=== PATIENT | female | born 1945 | race Caucasian/White ===

== ENCOUNTER 2017-05-22 20:18 | Inpatient (IN) ==
--- NOTE | 2017-05-22 20:54 | Emergency Department Report ---
Psych HPI - General Chief Complaint: Psychiatric Symptoms <Demetris Villeda C - 05/23/17 02:36> Stated Complaint: Clearance for generations <Demetris Villeda Suzanne 05/23/17 02:36> Time Seen by Provider: 05/22/17 20:23 <Demetris Villeda C - 05/23/17 02:36> Source: patient <Esperanza Shea - 05/22/17 20:54> Mode of arrival: ambulatory <Esperanza Shea 05/22/17 20:54> Limitations: no limitations <Esperanza Shea N - 05/22/17 20:54> - History of Present Illness HPI Narrative: She is brought in today by her and daughter in law. She has a history of dementia and she lives at home with her . He has noticed over the last week the she has had some increasing behaviors. Increased confusion and aggression at home. She puts on her sunglasses and gets her purse and wants to leave every 5 minutes. She is sleeping at night but he is not sleeping since he has to watch her. She has not had any other c/o. Is eating well. Has had some increased trouble with incontinence over the last week. They did go to [facility] today and were there for screening but were waiting a long time. They decided to come to [facility] for evaluation. Have not had an official acceptance to [facility]. <Esperanza Shea N 05/22/17 20:54> MD complaint: other (dementia with behaviors) <Esperanza Shae N 05/22/17 20:54> Onset (ago): week(s) (1) <Graciela Sheaa N 05/22/17 20:54> Duration: changing over time <NoGraciela camejoa N 05/22/17 20:54> Relieving factors: none <NoGraciela camejoa N 05/22/17 20:54> Exacerbating factors: none <NoGraciela camejoa N 05/22/17 20:54> Context: other (dementia) <NoGraciela camejoa N 05/22/17 20:54> Associated psychiatric symptoms: none <NoGraciela camejoa N 05/22/17 20:54> Associated symptoms: denies other symptoms <NoEsperanza 05/22/17 20:54> Treatments prior to arrival: none <No,Esperanza 05/22/17 20:54> - Related Data Home Medications Medication Instructions Recorded Confirmed Amlodipine [Norvasc] 5 mg PO DAILY 05/22/17 05/22/17 Benazepril [Lotensin] 20 mg PO DAILY 05/22/17 05/22/17 Metformin [Glucophage] 500 mg PO BID 05/22/17 05/22/17 Tennille-3/Dha/Epa/Fish Oil [Fish Oil 1,000 mg PO DAILY 05/22/17 05/22/17 1,000 mg Softgel] Simvastatin [Simvastatin] 20 mg PO HS 05/22/17 05/22/17 Vitamin D 1 tab PO DAILY 05/22/17 05/22/17 <Demetris Villeda - 05/23/17 02:36> Allergies Allergy/AdvReac Type Severity Reaction Status Date / Time erythromycin base AdvReac Intermediate Verified 05/22/17 20:39 tetracycline AdvReac Intermediate Verified 05/22/17 20:39 Unclassified Drug AdvReac Severe RASH DUE Uncoded 01/11/11 07:54 TO PLASTICS <Demetris Villeda - 05/23/17 02:36> Review of Systems Constitutional: Denies: fever, chills, weakness <Nold,Esperanza 05/22/17 20: 54> Eyes: Denies: eye pain <ld,Esperanza 05/22/17 20:54> ENT: Denies: ear pain, throat pain, congestion <No,Esperanza 05/22/17 20:54 > Cardiovascular: Denies: chest pain, palpitations, dyspnea on exertion, edema < Nold,Esperanza N 05/22/17 20:54> Respiratory: Denies: cough, dyspnea, wheezes <Nold,Esperanza 05/22/17 20:54> Gastrointestinal: Denies: abdominal pain, nausea, vomiting, diarrhea <Nold, Esperanza N 05/22/17 20:54> Integumentary: Denies: rash <Nold,Esperanza 05/22/17 20:54> Neurological: Denies: headache, weakness, numbness, paresthesias <Nold,Esperanza N 05/22/17 20:54> [facility] Patient Stated Medical History Dementia Yes Hypertension Yes Diabetes Mellitus Type 2 Yes Hx Incontinence Yes Other Hematologic Yes: ASPIRIN <Demetris Villeda Suzanne - 05/23/17 02:36> - Social History Smoking status: Never smoker <Esperanza Shea 05/22/17 20:54> Substance use type: does not use <Esperanza Shea 05/22/17 20:54> Alcohol intake frequency: does not drink <Esperanza Shea 05/22/17 20:54> Physical Exam - Limitations Limitations: no limitations <Esperanza Shea 05/22/17 20:54> - General General appearance: alert, in no apparent distress <ShabbirEsperanza Palomares 05/22/17 20:54> - Normal Exams: ENMT:: No facial trauma, nasal exudates, pharyngeal erythema, or exudates are noted <StellabashirEsperanza Palomares 05/22/17 20:54> Neck:: Full range of motion, without adenopathy, JVD, bruits or thyromegaly < Esperanza Shea 05/22/17 20:54> Chest/Respirations:: Clear all qureshi, with good airflow, and symmetry bilaterally <Esperanza Shea 05/22/17 20:54> Cardiovascular:: Regular rate and rhythm, without murmur or gallop, Pulses 2+ all extremities, capillary refill, <2 seconds all extremities <StellabashirEsperanza 05/22/17 20:54> Abdomen:: Bowel sounds positive, soft, non-tender, non-distended, no hepatosplenomegaly, masses or bruits noted <ShabbirEsperanza Palomares 05/22/17 20:54> Lymphatic:: No lymphadenopathy, or lymphedema noted <StellaEsperanza Palomares 05/22/17 20:54> Integumentary:: No rashes, hives, or bruising noted <StellaEsperanza Palomares 05/22/17 20:54> Neurological:: Patient is alert, cranial nerves, motor/sensory/cerebellar, exams w/o gross deficits, to observation <Esperanza Shea - 05/22/17 20:54> Psychiatric:: Patient exhibits, appropriate attention, emotion and affect < Esperanza Shea - 05/22/17 20:54> Course Vital Signs Pulse Rate 58 L 05/22/17 20:24 Respiratory Rate 18 05/22/17 20:24 Blood Pressure 177/81 H 05/22/17 20:24 Pulse Oximetry 98 05/22/17 20:24 Temperature 97.8 F 05/22/17 23:42 Pulse Rate 59 L 05/22/17 23:42 Respiratory Rate 18 05/22/17 23:42 Blood Pressure 158/79 H 05/22/17 23:42 Pulse Oximetry 99 05/22/17 23:42 <Demetris Villeda - 05/23/17 02:36> Psych - MDM Narrative Medical decision making narrative: 2130- Did speak with the [employer] and she will come and screen patient at this time. Noted Nitrite positive UA and bacteria in urine. Will go ahead and give her a Keflex here. 2321-Patient was accepted for admission to [facility] unit at this time. <Esperanza Shea - 05/22/17 23:23> - Differential Diagnosis Likely: depression, acute anxiety <Espearnza Shea - 05/22/17 20:54> - Lab Data Attestation: I reviewed the patient's lab results. <Esperanza Shea - 05/22/17 23:23> Result diagrams: 05/22/17 20:46 05/22/17 20:46 <Demetris Villeda - 05/23/17 02:36> Lab Results 05/22/17 05/22/17 05/22/17 Range/Units 20:46 20:46 20:46 WBC 7.1 (4.5-11.0) T/MM3 RBC 4.39 (4.00-5.20) M/MM3 Hgb 12.5 (12-16) GM/DL Hct 39.1 (36-46) % MCV 89.1 (80-100) UM3 MCH 28.5 (26-34) UUG MCHC 32.0 (31-37) GM/DL RDW Std Deviation 45.9 (36.9-50.2) FL Plt Count 241 (130-400) T/MM3 MPV 9.6 (9.4-12.4) UM3 Immature Gran % (Auto) 0.1 (0.0-0.5) % Neut % (Auto) 67.1 H (33-66) % Lymph % (Auto) 24.3 (23-45) % [place] % (Auto) 6.8 (0-9.0) % Eos % (Auto) 1.3 (0-4) % Baso % (Auto) 0.4 (0-2) % Neut # 4.8 (1.8-7.7) T/MM3 Lymph # 1.7 (1-4.8) T/MM3 [place] # 0.5 (0-0.8) T/MM3 Eos # 0.1 (0-0.5) T/MM3 Baso # 0.0 (0-0.2) T/MM3 Abs Immat Gran (auto) 0.01 (0.00-0.03) T/MM3 Turbidity < 20 (0-20) Sodium 148 H (134-144) MEQ/L Potassium 3.8 (3.6-5) MEQ/L Chloride 105 (98-107) MEQ/L Carbon Dioxide 29 (22-30) MEQ/L Anion Gap 14 (5-15) MEQ/L BUN 15.0 (7-17) MG/DL Creatinine 0.8 (0.7-1.2) MG/DL GFR Calculation 71 BUN/Creatinine Ratio 19 (6-26) RATIO Glucose 87 (65-110) MG/DL Calculated Osmolality 284 H (261-280) MOSM/KG Calcium 10.5 H (8.4-10.2) MG/DL Icterus Index < 2 (0-7) Prealbumin (17.6-36.0) MG/DL TSH 1.26 (0.47-4.68) MIU/L Specimen Hemolysis < 15 (0-25) Ur Collection Type Urine, clean catch Urine Color Yellow (YELLOW) Urine Clarity Clear Urine pH 5.5 (5.0-8.0) Ur Specific [place] <=1.005 L (1.015-1.025) Urine Protein Negative (NEGATIVE) Urine Glucose (UA) Negative (NEGATIVE) Urine Ketones Negative (NEGATIVE) Urine Occult Blood Negative (NEGATIVE) Urine Nitrate Positive A (NEGATIVE) Urine Bilirubin Negative (NEGATIVE) Urine Urobilinogen 0.2 (NORMAL) EU/DL Ur Leukocyte Esterase Negative (NEGATIVE) Urine RBC None seen (0-3) /HPF Urine WBC 0-1 (0-5) /HPF Ur Squamous Epith Cells 0-5 Urine Bacteria 3+ H (NEGATIVE) Ur Culture Indicated? Cult reflexed &setup 05/22/17 Range/Units 20:46 WBC (4.5-11.0) T/MM3 RBC (4.00-5.20) M/MM3 Hgb (12-16) GM/DL Hct (36-46) % MCV (80-100) UM3 MCH (26-34) UUG MCHC (31-37) GM/DL RDW Std Deviation (36.9-50.2) FL Plt Count (130-400) T/MM3 MPV (9.4-12.4) UM3 Immature Gran % (Auto) (0.0-0.5) % Neut % (Auto) (33-66) % Lymph % (Auto) (23-45) % [place] % (Auto) (0-9.0) % Eos % (Auto) (0-4) % Baso % (Auto) (0-2) % Neut # (1.8-7.7) T/MM3 Lymph # (1-4.8) T/MM3 [place] # (0-0.8) T/MM3 Eos # (0-0.5) T/MM3 Baso # (0-0.2) T/MM3 Abs Immat Gran (auto) (0.00-0.03) T/MM3 Turbidity (0-20) Sodium (134-144) MEQ/L Potassium (3.6-5) MEQ/L Chloride (98-107) MEQ/L Carbon Dioxide (22-30) MEQ/L Anion Gap (5-15) MEQ/L BUN (7-17) MG/DL Creatinine (0.7-1.2) MG/DL GFR Calculation BUN/Creatinine Ratio (6-26) RATIO Glucose (65-110) MG/DL Calculated Osmolality (261-280) MOSM/KG Calcium (8.4-10.2) MG/DL Icterus Index (0-7) Prealbumin 24.9 (17.6-36.0) MG/DL TSH (0.47-4.68) MIU/L Specimen Hemolysis (0-25) Ur Collection Type Urine Color (YELLOW) Urine Clarity Urine pH (5.0-8.0) Ur Specific Delmar (1.015-1.025) Urine Protein (NEGATIVE) Urine Glucose (UA) (NEGATIVE) Urine Ketones (NEGATIVE) Urine Occult Blood (NEGATIVE) Urine Nitrate (NEGATIVE) Urine Bilirubin (NEGATIVE) Urine Urobilinogen (NORMAL) EU/DL Ur Leukocyte Esterase (NEGATIVE) Urine RBC (0-3) /HPF Urine WBC (0-5) /HPF Ur Squamous Epith Cells Urine Bacteria (NEGATIVE) Ur Culture Indicated? <Demetris Villeda - 05/23/17 02:36> Lab Results 05/22/17 05/22/17 05/22/17 Range/Units 20:46 20:46 20:46 WBC 7.1 (4.5-11.0) T/MM3 RBC 4.39 (4.00-5.20) M/MM3 Hgb 12.5 (12-16) GM/DL Hct 39.1 (36-46) % MCV 89.1 (80-100) UM3 MCH 28.5 (26-34) UUG MCHC 32.0 (31-37) GM/DL RDW Std Deviation 45.9 (36.9-50.2) FL Plt Count 241 (130-400) T/MM3 MPV 9.6 (9.4-12.4) UM3 Immature Gran % (Auto) 0.1 (0.0-0.5) % Neut % (Auto) 67.1 H (33-66) % Lymph % (Auto) 24.3 (23-45) % [place] % (Auto) 6.8 (0-9.0) % Eos % (Auto) 1.3 (0-4) % Baso % (Auto) 0.4 (0-2) % Neut # 4.8 (1.8-7.7) T/MM3 Lymph # 1.7 (1-4.8) T/MM3 [place] # 0.5 (0-0.8) T/MM3 Eos # 0.1 (0-0.5) T/MM3 Baso # 0.0 (0-0.2) T/MM3 Abs Immat Gran (auto) 0.01 (0.00-0.03) T/MM3 Turbidity < 20 (0-20) Sodium 148 H (134-144) MEQ/L Potassium 3.8 (3.6-5) MEQ/L Chloride 105 (98-107) MEQ/L Carbon Dioxide 29 (22-30) MEQ/L Anion Gap 14 (5-15) MEQ/L BUN 15.0 (7-17) MG/DL Creatinine 0.8 (0.7-1.2) MG/DL GFR Calculation 71 BUN/Creatinine Ratio 19 (6-26) RATIO Glucose 87 (65-110) MG/DL Calculated Osmolality 284 H (261-280) MOSM/KG Calcium 10.5 H (8.4-10.2) MG/DL Icterus Index < 2 (0-7) Prealbumin (17.6-36.0) MG/DL TSH 1.26 (0.47-4.68) MIU/L Specimen Hemolysis < 15 (0-25) Ur Collection Type Urine, clean catch Urine Color Yellow (YELLOW) Urine Clarity Clear Urine pH 5.5 (5.0-8.0) Ur Specific [place] <=1.005 L (1.015-1.025) Urine Protein Negative (NEGATIVE) Urine Glucose (UA) Negative (NEGATIVE) Urine Ketones Negative (NEGATIVE) Urine Occult Blood Negative (NEGATIVE) Urine Nitrate Positive A (NEGATIVE) Urine Bilirubin Negative (NEGATIVE) Urine Urobilinogen 0.2 (NORMAL) EU/DL Ur Leukocyte Esterase Negative (NEGATIVE) Urine RBC None seen (0-3) /HPF Urine WBC 0-1 (0-5) /HPF Ur Squamous Epith Cells 0-5 Urine Bacteria 3+ H (NEGATIVE) Ur Culture Indicated? Cult reflexed &setup 05/22/17 Range/Units 20:46 WBC (4.5-11.0) T/MM3 RBC (4.00-5.20) M/MM3 Hgb (12-16) GM/DL Hct (36-46) % MCV (80-100) UM3 MCH (26-34) UUG MCHC (31-37) GM/DL RDW Std Deviation (36.9-50.2) FL Plt Count (130-400) T/MM3 MPV (9.4-12.4) UM3 Immature Gran % (Auto) (0.0-0.5) % Neut % (Auto) (33-66) % Lymph % (Auto) (23-45) % [place] % (Auto) (0-9.0) % Eos % (Auto) (0-4) % Baso % (Auto) (0-2) % Neut # (1.8-7.7) T/MM3 Lymph # (1-4.8) T/MM3 [place] # (0-0.8) T/MM3 Eos # (0-0.5) T/MM3 Baso # (0-0.2) T/MM3 Abs Immat Gran (auto) (0.00-0.03) T/MM3 Turbidity (0-20) Sodium (134-144) MEQ/L Potassium (3.6-5) MEQ/L Chloride (98-107) MEQ/L Carbon Dioxide (22-30) MEQ/L Anion Gap (5-15) MEQ/L BUN (7-17) MG/DL Creatinine (0.7-1.2) MG/DL GFR Calculation BUN/Creatinine Ratio (6-26) RATIO Glucose (65-110) MG/DL Calculated Osmolality (261-280) MOSM/KG Calcium (8.4-10.2) MG/DL Icterus Index (0-7) Prealbumin 24.9 (17.6-36.0) MG/DL TSH (0.47-4.68) MIU/L Specimen Hemolysis (0-25) Ur Collection Type Urine Color (YELLOW) Urine Clarity Urine pH (5.0-8.0) Ur Specific [place] (1.015-1.025) Urine Protein (NEGATIVE) Urine Glucose (UA) (NEGATIVE) Urine Ketones (NEGATIVE) Urine Occult Blood (NEGATIVE) Urine Nitrate (NEGATIVE) Urine Bilirubin (NEGATIVE) Urine Urobilinogen (NORMAL) EU/DL Ur Leukocyte Esterase (NEGATIVE) Urine RBC (0-3) /HPF Urine WBC (0-5) /HPF Ur Squamous Epith Cells Urine Bacteria (NEGATIVE) Ur Culture Indicated? <StellabashirEsperanza N - 05/22/17 21:24> Disposition Clinical Impression: Dementia Qualifiers: Dementia type: associated with other underlying disease Dementia behavioral disturbance: with behavioral disturbance Qualified Code(s): F02.81 - Dementia in other diseases classified elsewhere with behavioral disturbance <Demetris Villeda - 05/23/17 02:36> Disposition: 65 To [facility] <Demetris Villeda C 05/23/17 02:36> Condition: Stable <Demetris Villeda 05/23/17 02:36> Instructions: <Demetris Villeda 05/23/17 02:36> Prescriptions: No Action Metformin [Glucophage] 500 mg PO BID Simvastatin [Simvastatin] 20 mg PO HS Amlodipine [Norvasc] 5 mg PO DAILY Vitamin D 1 tab PO DAILY Tennille-3/Dha/Epa/Fish Oil [Fish Oil 1,000 mg Softgel] 1,000 mg PO DAILY Benazepril [Lotensin] 20 mg PO DAILY <Demetris Villeda - 05/23/17 02:36> Referrals: Josué Thakur MD [Family Provider] - <Demetris Villeda 05/23 02:36> Forms: <Demetris Villeda 05/23/17 02:36> Time of Disposition: 23:21 <Esperanza Shea - 05/22/17 23:23> - Seen By: midlevel <Esperanza Shea N 05/22/17 23:23>
[2017-05-23] MEDS ORDERED: HALOPERIDOL 0.5 MG TABLET PO PRN (00:10)
[2017-05-23] MEDS ORDERED: HALOPERIDOL 5 MG/ML INJECTION IM PRN (00:10)
[2017-05-23 00:43] VITALS: BMI 22.3
[2017-05-23] MEDS: BENAZEPRIL 20 MG TABLET PO SCH ×2 (07:32→08:12)
[2017-05-23] MEDS: LORazepam 0.5 MG TABLET PO PRN (07:32)
[2017-05-23] MEDS: OMEGA-3 ACID ESTERS 1 GM CAPSULE PO SCH ×2 (07:32→08:12)
[2017-05-23] MEDS: METFORMIN 500 MG TABLET PO SCH ×2 (07:32→17:17)
[2017-05-23] MEDS: AMLODIPINE 5 MG TABLET PO SCH ×2 (07:33→08:12)
--- NOTE | 2017-05-23 10:43 | History & Physical Report ---
<Brenda Prince - Last Filed: 05/23/17 13:25> History of Present Illness Date: 05/23/17 Chief complaint: behaviors "out of control" HPI: aNhomi Mehta is a 71-year-old woman who was admitted to [facility] on 05/22/17 for increasing behaviors such as refusing to change her clothes or take her medication, and becoming more aggressive and angry. Her symptoms have been progressing over the last week. She has been more confused, and does carry a diagnosis of dementia. She has been living at home with her . She was cleared in the emergency department and was admitted to [facility]. Initial lab work showed hypernatremia, hypercalcemia, and bacteruria. EKG showed possible junctional rhythm. The patient was seen in her room in the morning of 05/23/17. She was alert and oriented to self and place. She thought she was admitted for treatment of a UTI. She was correct on the month and day, however, she thought that the year was 1916. She states that she has been in relatively good health. She denies any recent illnesses or concerns. Her only positive finding was a cold sore on her left lower lip. Typically, she states she treats these with "Clorox" at home. She denies any recent stress. Specifically, she denies any burning on urination, urinary frequency or urgency, abdominal pain or pressure, nausea or vomiting, back pain/flank pain. Furthermore, she denies any fevers or chills or sweats, constipation or diarrhea. She denies any chest pain or shortness of breath, visual changes, weakness or dizziness, or recent injuries. Review of Systems Comprehensive ROS: completed and no additional positive findings except those as stated - EENMT Mouth/Throat: Present: as per HPI [facility] Vascular dementia Hypertension Hyperlipidemia Gilbert's disease. Type 2 diabetes mellitus. Allergic rhinitis Surgical History: Negative screening colonoscopy in 2012. Left hip replacement at 65 years old. Complete hysterectomy at 49 years old. Tonsillectomy as a child. Family History: Patient reports that both parents in their 80s. Per Dr. Thakur' office notes, family history is negative for breast cancer. - Social History Smoking status: Never smoker Substance use type: does not use Alcohol intake frequency: holidays/special occasions only Household members: spouse Current occupational status: retired Previous occupational history: car driver Medications Home Medications Medication Instructions Recorded Confirmed Type Amlodipine [Norvasc] 5 mg PO DAILY 05/22/17 05/22/17 History Benazepril [Lotensin] 20 mg PO DAILY 05/22/17 05/22/17 History Metformin [Glucophage] 500 mg PO BID 05/22/17 05/22/17 History Alger-3/Dha/Epa/Fish Oil [Fish Oil 1,000 mg PO DAILY 05/22/17 05/22/17 History 1,000 mg Softgel] Simvastatin [Simvastatin] 20 mg PO HS 05/22/17 05/22/17 History Vitamin D 1 tab PO DAILY 05/22/17 05/22/17 History Allergies Allergy/AdvReac Type Severity Reaction Status Date / Time erythromycin base AdvReac Intermediate Verified 05/22/17 20:39 tetracycline AdvReac Intermediate Verified 05/22/17 20:39 Unclassified Drug AdvReac Severe RASH DUE Uncoded 01/11/11 07:54 TO PLASTICS Exam Vital Signs: Temperature 98.0 F 05/23/17 07:22 Pulse Rate 60 05/23/17 09:24 Respiratory Rate 18 05/23/17 09:24 Blood Pressure 154/77 H 05/23/17 07:22 Pulse Oximetry 98 05/23/17 09:24 Oxygen Delivery Method Room Air Height: 1.55 m Weight: 53.6 kg Body Mass Index: 22.3 - Constitutional Present: no acute distress, well nourished, well developed, thin - Routine HEENT Exam Head: Present: normocephalic Eye: Present: PERRL. Absent: conjunctival icterus, scleral injection ENT: Present: mucous membranes moist, oropharynx clear. Absent: dentition normal (decay - mild) Comments: Small herpes lesion to left lower lip - Routine Neck Exam Present: supple. Absent: lymphadenopathy - Routine Respiratory Exam Present: CTA bilaterally - Routine Cardiovascular Exam Present: RRR, S1, S2 - Routine Abdominal Exam Present: soft, normoactive bowel sounds, non distended, non tender - Routine Extremities Exam Present: no edema, pulses intact, normal capillary refill - Routine Skin Exam Present: intact, dry, warm - Routine Neurological Exam Present: alert, CN II-XII intact. Absent: oriented X3 - Routine Psychiatric Exam Present: normal affect, cooperative Results - Labs CBC & Chem 7: 05/22/17 20:46 05/23/17 11:29 Assessment and Plan (1) Hypernatremia Current visit: Yes Status: Acute (2) Bacteria in urine Current visit: Yes Status: Acute Resuscitation Status: Full Code Assessment and Plan: Assessment Vascular dementia with behavioral disturbance. Hyperosmotic hypernatremia, present on admission. Hypercalcemia, present on admission. Asymptomatic UTI. Abnormal EKG. 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 Type 2 diabetes mellitus. Last hemoglobin A1c was 6.1% in April 2016 Hypertension. Hyperlipidemia. Gilbert's disease. Allergic rhinitis. Plan Dementia with behavioral changes -Per attending -Agree with obtaining dementia workup -TSH normal. Vitamin B12, folate, RPR pending. -check LFTs Hypernatremia -Encourage oral intake -On repeat today, sodium returned to normal level at 144 -Reassess BMP tomorrow morning to follow-up on hypernatremia and hypercalcemia. Hypercalcemia [mild]. -Improved on repeat lab work, but remains elevated. -She is not on calcium supplementation but does take cholecalciferol. -Hold vitamin D and check phosphorus level since cholecalciferol promotes secretion of calcium from bone to blood and promotes renal tubule phosphate resorption -Per up-to-date, symptoms of vitamin D toxicity include nausea, vomiting, loss of appetite, constipation, dehydration, fatigue, irritability, confusion, weakness and/or weight loss -check PTH, albumin, and ionized Ca Asymptomatic UTI/bacteria in urine -Normal white count, afebrile, patient also denies any urinary symptoms (though suspect she is not the best historian) -She was given 1 dose of Keflex in the emergency department. -We'll await to see what culture grows out before resuming antibiotic therapy. -If she starts to develop urinary symptoms, may restart antibiotics. -Repeat CBC tomorrow morning to monitor for leukocytosis. Abnormal EKG -Admission EKG showed possible junctional bradycardic rhythm -EKG repeated today revealed sinus bradycardia without acute ST segment elevation or depression. 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 -No other lesions noted in/around mouth -monitor, consider starting acyclovir if worsens. Type 2 diabetes -Continue metformin, carbohydrate controlled diet. -Recheck hemoglobin A1c. -Monitor blood sugars. Sepsis Assessment - Evaluation Sepsis screening result: No Definite Risk Hospital Course Summary Disclaimer: The visit summary below is not to be considered part of the above Progress Note. Hospital Course: 05/23/17 Assessment Vascular dementia with behavioral disturbance. Hyperosmotic hypernatremia, present on admission. Hypercalcemia, present on admission. Asymptomatic UTI. Type 2 diabetes mellitus. Last hemoglobin A1c was 6.1% in April 2016 Hypertension. Hyperlipidemia. Gilbert's disease. Allergic rhinitis. Plan Dementia with behavioral changes -Per attending -Agree with obtaining dementia workup -TSH normal. Vitamin B12, folate, RPR pending. -check LFTs Hypernatremia -Encourage oral intake -On repeat today, sodium returned to normal level at 144 -Reassess BMP tomorrow morning to follow-up on hypernatremia and hypercalcemia. Hypercalcemia [mild]. -Improved on repeat lab work, but remains elevated. -She is not on calcium supplementation but does take cholecalciferol. -Hold vitamin D and check phosphorus level since cholecalciferol promotes secretion of calcium from bone to blood and promotes renal tubule phosphate resorption -Per up-to-date, symptoms of vitamin D toxicity include nausea, vomiting, loss of appetite, constipation, dehydration, fatigue, irritability, confusion, weakness and/or weight loss -check PTH, albumin, and ionized Ca Asymptomatic UTI/bacteria in urine -Normal white count, afebrile, patient also denies any urinary symptoms (though suspect she is not the best historian) -She was given 1 dose of Keflex in the emergency department. -We'll await to see what culture grows out before resuming antibiotic therapy. -If she starts to develop urinary symptoms, may restart antibiotics. -Repeat CBC tomorrow morning to monitor for leukocytosis. Abnormal EKG -Admission EKG showed possible junctional bradycardic rhythm -EKG repeated today revealed sinus bradycardia without acute ST segment elevation or depression. 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 -No other lesions noted in/around mouth -monitor, consider starting acyclovir if worsens. Type 2 diabetes -Continue metformin, carbohydrate controlled diet. -Recheck hemoglobin A1c. -Monitor blood sugars. <Aaron Ricci - Last Filed: 05/23/17 17:06> History of Present Illness Date: 05/23/17 [facility] Patient Stated Medical History Dementia Yes Hypertension Yes Diabetes Mellitus Type 2 Yes Hx Incontinence Yes Other Hematologic Yes: ASPIRIN Exam Vital Signs: Temperature 98.2 F 05/23/17 16:00 Pulse Rate 87 05/23/17 16:00 Respiratory Rate 16 05/23/17 16:00 Blood Pressure 127/71 05/23/17 16:00 Pulse Oximetry 99 05/23/17 16:00 Oxygen Delivery Method Room Air Height: 5 ft 1 in Weight: 53.6 kg Results - Labs CBC & Chem 7: 05/22/17 20:46 05/23/17 11:29 Assessment and Plan (1) Hypernatremia Current visit: Yes Status: Acute (2) Bacteria in urine Current visit: Yes Status: Acute Assessment and Plan: above pt seen and examined by me; agree with above plan of care. Urine culture is growing E Coli, this could still be asymptomatic bacteriuria, will treat to see if this is causing worsening of her mentation. Pt has mild hypercalcemia, agree with PTH level and holding vitamin D. Plan 1) Recheck CBC, BMP and Calcium in the AM. 2) Augmentin will be started. Hospital Course Summary Disclaimer: The visit summary below is not to be considered part of the above Progress Note.
[2017-05-23] MEDS ORDERED: AMOX/CLAV 500 MG/125 MG TABLET PO SCH (17:00)
--- NOTE | 2017-05-23 17:33 | 24 Hour Neuropsychiatic Eval ---
Date of Admission: 05/22/17 23:29 Chief complaint: "I got a UTI" History of Present Illness: HPI: 71 Y/O CF with a hx of dementia BB for increasing aggression and wandering behavior. Per pt has had increasing memory impairment and aggression with wandering behavior. reports pt has been irritable, throwing objects, and has had increased wandering behaviors. This has been going on for about 6 months but it has been worse over the last 2 weeks. On face to face the pt is pleasant. Nursing reports pt was irritable and anxious this morning but is doing well today. She is alert and oriented x 2. Not sure of the month. She states she is here due to a UTI. She voices no concerns at this time. STRESSORS: Denies any current stressors. PSYCH ROS: PT denies feeling depressed. reports pt has been more irritable and angry at times with a labile mood. She has had significant weight loss recently. She can be anxious at times. She denies adal or psychosis. PAST PSYCH: Denies PFSH Patient Stated Medical History Dementia Yes Hypertension Yes Diabetes Mellitus Type 2 Yes Hx Incontinence Yes Other Hematologic Yes: ASPIRIN Surgical History: Negative screening colonoscopy in 2012. Left hip replacement at 65 years old. Complete hysterectomy at 49 years old. Tonsillectomy as a child. - Social History Smoking status: Never smoker Review of Systems - Constitutional Constitutional: Present: anorexia - EENMT Mouth/Throat: Present: as per HPI - Psychiatric Psychiatric: Present: anxiety, difficulty concentrating, mood swings Mental Status Exam Vitals: Last Vital Signs Temp 98.2 F 05/23/17 16:00 Pulse 87 05/23/17 16:00 Resp 16 05/23/17 16:00 BP 127/71 05/23/17 16:00 Pulse Ox 99 05/23/17 16:00 Height: 1.55 m Weight: 53.6 kg - Mental Status Exam Muscle Strength/Tone: Normal Dressing: Casual Grooming: Good Attitude: Guarded Motor Activity: Retardation Eye Contact: Fair Speech: Slowed Volume: Soft Rhythm: Appropriate Rhythm Orientation: Oriented to person, Oriented to place Mood: Neutral Affect: Blunted Rate of Thoughts: Delayed Thought Organization: Confused Associations: Flight of Ideas Abstract Reasoning: Poor abstract reasoning Thought Content: Normal Perception/Psychotic: Perception Normal Fund of Knowledge: Poor fund of knowledge Memory: Poor-immediate, Poor-recent Insight: Poor Judgement: Poor Impulse Control: Poor - Laboratory Result Diagrams: 05/22/17 20:46 05/23/17 11:29 Laboratory Results - last 24 hr 05/23/17 05/23/17 05/23/17 11:27 11:29 14:15 Turbidity < 20 Sodium 144 Potassium 4.3 Chloride 106 Carbon Dioxide 29 Anion Gap 9 BUN 15.0 Creatinine 0.7 GFR Calculation 82 BUN/Creatinine Ratio 21 Glucose 85 Glucometer 171 Hemoglobin A1c 5.3 L Calculated Osmolality 277 Calcium 10.3 H Ionized Calcium Grant Phosphorus 3.5 Total Bilirubin Conjugated Bilirubin Unconjugated Bilirubin Icterus Index < 2 AST ALT Alkaline Phosphatase Total Protein Albumin Globulin Albumin/Globulin Ratio PTH Intact Specimen Hemolysis < 15 05/23/17 05/23/17 14:58 14:58 Turbidity < 20 Sodium Potassium Chloride Carbon Dioxide Anion Gap BUN Creatinine GFR Calculation BUN/Creatinine Ratio Glucose Glucometer Hemoglobin A1c Calculated Osmolality Calcium Ionized Calcium Grant 1.30 Phosphorus Total Bilirubin 1.00 Conjugated Bilirubin 0.00 Unconjugated Bilirubin 0.60 Icterus Index < 2 AST 19 ALT 28 Alkaline Phosphatase 62 Total Protein 7.2 Albumin 4.6 4.5 Globulin 2.6 Albumin/Globulin Ratio 1.8 PTH Intact 30.9 Specimen Hemolysis < 15 Assessment and Plan (1) Major neurocognitive disorder due to Alzheimer's disease, possible Problem details: with behavioral disturbance Current visit: Yes Status: Acute (2) Delirium due to another medical condition Problem details: Suspect due to UTI Current visit: Yes Status: Acute Admit to [facility]. Will consult medical team and treat UTI. Will monitor and obtain collateral from
[2017-05-23] MEDS: SIMVASTATIN 20 MG TABLET PO SCH (21:00)
[2017-05-24] MEDS: AMOX/CLAV 500 MG/125 MG TABLET PO SCH ×3 (08:52→17:26)
[2017-05-24] MEDS: OMEGA-3 ACID ESTERS 1 GM CAPSULE PO SCH (08:52)
[2017-05-24] MEDS: BENAZEPRIL 20 MG TABLET PO SCH (08:52)
[2017-05-24] MEDS: METFORMIN 500 MG TABLET PO SCH ×2 (08:52→17:26)
[2017-05-24] MEDS: AMLODIPINE 5 MG TABLET PO SCH (08:53)
[2017-05-24] MEDS: LORazepam 0.5 MG TABLET PO PRN (10:29)
--- NOTE | 2017-05-24 18:18 | Neuropsych Progress Note ---
Alex Subjective Date: 05/24/17 - Sujective/Severity of Illness Medications: Amlodipine Besylate (Norvasc) 5 mg PO DAILY [facility] Last Admin: 05/24/17 08:53 Dose: 5 mg Amoxicillin/Clavulanate Potassium (Augmentin) 500 mg PO TIDWM [facility] Last Admin: 05/24/17 17:26 Dose: 500 mg Benazepril HCl (Lotensin) 20 mg PO DAILY [facility] Last Admin: 05/24/17 08:52 Dose: 20 mg Cholecalciferol (Vit. D-3) 1,000 unit PO DAILY [facility] Last Admin: 05/23/17 08:12 Dose: Not Given Haloperidol (Haldol) 0.5 mg PO Q6H PRN PRN Reason: Anxiety/Agitation Haloperidol Lactate (Haldol) 0.5 mg IM Q6H PRN PRN Reason: Extreme agitation Lorazepam (Ativan Inj) 0.5 mg IM Q6H PRN PRN Reason: Anxiety/Agitation Lorazepam (Ativan) 0.5 mg PO Q6H PRN PRN Reason: Anxiety/Agitation Last Admin: 05/24/17 10:29 Dose: 0.5 mg Metformin HCl (Glucophage) 500 mg PO BIDWM [facility] Last Admin: 05/24/17 17:26 Dose: 500 mg Kedam-3-Vehl Ethyl Esters (Lovaza) 1 gm PO DAILY [facility] Last Admin: 05/24/17 08:52 Dose: 1 gm Simvastatin (Zocor) 20 mg PO HS [facility] Last Admin: 05/23/17 21:00 Dose: 20 mg Subjective: Pt seen and chart examined. Nursing reports pt does a little worse in the mornings and then gets better as the day goes on. PT is obsessive in the mornings and somewhat anxious but her cognition and anxiety seem to improve as the day goes on. On face to face the pt states she is doing well. She is only oriented x 1. She denies any pain. Tolerating meds Start Time: 17:00 Stop Time: 17:15 Mental Status Exam Vitals: Last Vital Signs Temp 97.8 F 05/24/17 16:00 Pulse 61 05/24/17 16:00 Resp 18 05/24/17 16:00 BP 167/79 H 05/24/17 16:00 Pulse Ox 99 05/24/17 16:00 Height: 1.55 m Weight: 53.6 kg - Mental Status Exam Muscle Strength/Tone: Normal Dressing: Casual Grooming: Good Attitude: Guarded Motor Activity: Retardation Eye Contact: Fair Speech: Slowed Volume: Soft Rhythm: Appropriate Rhythm Orientation: Oriented to person, Oriented to place Mood: Neutral Rate of Thoughts: Delayed Thought Organization: Confused Associations: Flight of Ideas Abstract Reasoning: Poor abstract reasoning Thought Content: Normal Perception/Psychotic: Perception Normal Fund of Knowledge: Poor fund of knowledge Memory: Poor-immediate, Poor-recent Insight: Poor Judgement: Poor Impulse Control: Poor - Laboratory Result Diagrams: 05/24/17 07:42 05/24/17 07:42 Laboratory Results - last 24 hr 05/23/17 05/24/17 05/24/17 20:02 05:43 07:42 WBC RBC Hgb Hct MCV MCH MCHC RDW Std Deviation Plt Count MPV Immature Gran % (Auto) Neut % (Auto) Lymph % (Auto) [place] % (Auto) Eos % (Auto) Baso % (Auto) Neut # Lymph # [place] # Eos # Baso # Abs Immat Gran (auto) Turbidity < 20 Sodium 146 H Potassium 3.7 Chloride 103 Carbon Dioxide 31 H Anion Gap 12 BUN 13.0 Creatinine 0.7 GFR Calculation 82 BUN/Creatinine Ratio 19 Glucose 97 Glucometer 105 90 Calculated Osmolality 281 H Calcium 10.1 Icterus Index < 2 Specimen Hemolysis < 15 05/24/17 05/24/17 05/24/17 07:42 10:23 14:33 WBC 6.6 RBC 4.57 Hgb 12.9 Hct 40.7 MCV 89.1 MCH 28.2 MCHC 31.7 RDW Std Deviation 45.3 Plt Count 247 MPV 9.4 Immature Gran % (Auto) 0.2 Neut % (Auto) 65.6 Lymph % (Auto) 27.0 [place] % (Auto) 5.2 Eos % (Auto) 1.7 Baso % (Auto) 0.3 Neut # 4.3 Lymph # 1.8 [place] # 0.3 Eos # 0.1 Baso # 0.0 Abs Immat Gran (auto) 0.01 Turbidity Sodium Potassium Chloride Carbon Dioxide Anion Gap BUN Creatinine GFR Calculation BUN/Creatinine Ratio Glucose Glucometer 97 84 Calculated Osmolality Calcium Icterus Index Specimen Hemolysis Assessment and Plan (1) Major neurocognitive disorder due to Alzheimer's disease, possible Problem details: with behavioral disturbance Current visit: Yes Status: Acute (2) Delirium due to another medical condition Problem details: Suspect due to UTI Current visit: Yes Status: Acute Hospital Course Summary Disclaimer: The visit summary below is not to be considered part of the above Progress Note. Hospital Course: 05/23/17 Assessment Vascular dementia with behavioral disturbance. Hyperosmotic hypernatremia, present on admission. Hypercalcemia, present on admission. Asymptomatic UTI. Type 2 diabetes mellitus. Last hemoglobin A1c was 6.1% in April 2016 Hypertension. Hyperlipidemia. Gilbert's disease. Allergic rhinitis. Plan Dementia with behavioral changes -Per attending -Agree with obtaining dementia workup -TSH normal. Vitamin B12, folate, RPR pending. -check LFTs Hypernatremia -Encourage oral intake -On repeat today, sodium returned to normal level at 144 -Reassess BMP tomorrow morning to follow-up on hypernatremia and hypercalcemia. Hypercalcemia [mild]. -Improved on repeat lab work, but remains elevated. -She is not on calcium supplementation but does take cholecalciferol. -Hold vitamin D and check phosphorus level since cholecalciferol promotes secretion of calcium from bone to blood and promotes renal tubule phosphate resorption -Per up-to-date, symptoms of vitamin D toxicity include nausea, vomiting, loss of appetite, constipation, dehydration, fatigue, irritability, confusion, weakness and/or weight loss -check PTH, albumin, and ionized Ca Asymptomatic UTI/bacteria in urine -Normal white count, afebrile, patient also denies any urinary symptoms (though suspect she is not the best historian) -She was given 1 dose of Keflex in the emergency department. -We'll await to see what culture grows out before resuming antibiotic therapy. -If she starts to develop urinary symptoms, may restart antibiotics. -Repeat CBC tomorrow morning to monitor for leukocytosis. Abnormal EKG -Admission EKG showed possible junctional bradycardic rhythm -EKG repeated today revealed sinus bradycardia without acute ST segment elevation or depression. 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 -No other lesions noted in/around mouth -monitor, consider starting acyclovir if worsens. Type 2 diabetes -Continue metformin, carbohydrate controlled diet. -Recheck hemoglobin A1c. -Monitor blood sugars. 05/24/17 18:18 Remeron 15mg PO QHS
[2017-05-24] MEDS ORDERED: MIRTAZAPINE 15 MG TABLET PO PRN (18:19)
[2017-05-24] MEDS: SIMVASTATIN 20 MG TABLET PO SCH (20:23)
[2017-05-25] MEDS: BENAZEPRIL 20 MG TABLET PO SCH (08:42)
[2017-05-25] MEDS: OMEGA-3 ACID ESTERS 1 GM CAPSULE PO SCH (08:42)
[2017-05-25] MEDS: AMLODIPINE 5 MG TABLET PO SCH (08:42)
[2017-05-25] MEDS: METFORMIN 500 MG TABLET PO SCH ×2 (08:42→17:03)
[2017-05-25] MEDS: AMOX/CLAV 500 MG/125 MG TABLET PO SCH ×3 (08:42→17:03)
--- NOTE | 2017-05-25 09:52 | Progress Note ---
Subjective: Nahomi is seen today in follow up while eating breakfast. She is alert, oriented and pleasant. She denies having any concerns or complaints. Denies pain or shortness of breath. Blood sugars have been well controlled. Fasting sugar this morning 85. Appetite is good. She is voiding without difficulty and denies dysuria. No reported bowel movement. Objective Vital signs: Temperature 98.2 F 05/25/17 08:00 Pulse Rate 97 05/25/17 08:00 Respiratory Rate 16 05/25/17 08:00 Blood Pressure 149/99 H 05/25/17 08:00 Pulse Oximetry 100 05/25/17 08:00 Oxygen Delivery Method Room Air Height: 1.55 m Weight: 53.6 kg Body Mass Index: 22.3 - Constitutional Present: no acute distress, well nourished, well developed - Routine HEENT Exam Head: Present: normocephalic Eye: Present: EOMI, PERRL ENT: Present: mucous membranes moist, dentition normal - Routine Respiratory Exam Present: CTA bilaterally. Absent: wheezes - Routine Cardiovascular Exam Present: RRR, S1, S2. Absent: murmur - Routine Abdominal Exam Present: soft, normoactive bowel sounds, non distended. Absent: tenderness - Routine Extremities Exam Present: normal capillary refill - Routine Back/Spine/Pelvis Exam Back/Spine: Present: full ROM - Routine Skin Exam Present: intact, dry, warm - Routine Neurological Exam Present: alert, oriented X3, CN II-XII intact - Routine Lymphatic Exam Lymphatic: Absent: adenopathy - Routine Psychiatric Exam Present: normal affect Results - Labs CBC & Chem 7: 05/24/17 07:42 05/24/17 07:42 Assessment and Plan (1) Hypernatremia Current visit: Yes Status: Acute (2) Bacteria in urine Current visit: Yes Status: Acute Assessment and Plan: 05/25/17 UTI- Continue on Augmentin for treatment of Escherichia coli urinary tract infection. Culture and sensitivity reviewed. HTN- noted. Blood pressure is slightly elevated today. We'll continue to monitor. Currently on Norvasc 5 milligrams daily. Could consider increasing to 10mg. Constipation-have asked nursing staff to increase their aggressiveness regarding bowel motivation. Started MiraLAX and milk of magnesia Diabetes-will continue to monitor blood sugars. Overall appear to be well controlled on metformin 500 twice a day. Continue to encourage purchase patient unit activities and provide a safe environment under the care of Dr. Cha Sepsis Assessment - Evaluation Sepsis screening result: No Definite Risk Hospital Course Summary Disclaimer: The visit summary below is not to be considered part of the above Progress Note. Hospital Course: 05/23/17 Assessment Vascular dementia with behavioral disturbance. Hyperosmotic hypernatremia, present on admission. Hypercalcemia, present on admission. Asymptomatic UTI. Type 2 diabetes mellitus. Last hemoglobin A1c was 6.1% in April 2016 Hypertension. Hyperlipidemia. Gilbert's disease. Allergic rhinitis. Plan Dementia with behavioral changes -Per attending -Agree with obtaining dementia workup -TSH normal. Vitamin B12, folate, RPR pending. -check LFTs Hypernatremia -Encourage oral intake -On repeat today, sodium returned to normal level at 144 -Reassess BMP tomorrow morning to follow-up on hypernatremia and hypercalcemia. Hypercalcemia [mild]. -Improved on repeat lab work, but remains elevated. -She is not on calcium supplementation but does take cholecalciferol. -Hold vitamin D and check phosphorus level since cholecalciferol promotes secretion of calcium from bone to blood and promotes renal tubule phosphate resorption -Per up-to-date, symptoms of vitamin D toxicity include nausea, vomiting, loss of appetite, constipation, dehydration, fatigue, irritability, confusion, weakness and/or weight loss -check PTH, albumin, and ionized Ca Asymptomatic UTI/bacteria in urine -Normal white count, afebrile, patient also denies any urinary symptoms (though suspect she is not the best historian) -She was given 1 dose of Keflex in the emergency department. -We'll await to see what culture grows out before resuming antibiotic therapy. -If she starts to develop urinary symptoms, may restart antibiotics. -Repeat CBC tomorrow morning to monitor for leukocytosis. Abnormal EKG -Admission EKG showed possible junctional bradycardic rhythm -EKG repeated today revealed sinus bradycardia without acute ST segment elevation or depression. 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 -No other lesions noted in/around mouth -monitor, consider starting acyclovir if worsens. Type 2 diabetes -Continue metformin, carbohydrate controlled diet. -Recheck hemoglobin A1c. -Monitor blood sugars. 05/24/17 18:18 Remeron 15mg PO QHS 05/25/17 UTI- Continue on Augmentin for treatment of Escherichia coli urinary tract infection. Culture and sensitivity reviewed. HTN- noted. Blood pressure is slightly elevated today. We'll continue to monitor. Currently on Norvasc 5 milligrams daily. Could consider increasing to 10mg. Constipation-have asked nursing staff to increase their aggressiveness regarding bowel motivation. Started MiraLAX and milk of magnesia Diabetes-will continue to monitor blood sugars. Overall appear to be well controlled on metformin 500 twice a day. Continue to encourage purchase patient unit activities and provide a safe environment under the care of Dr. Cha
[2017-05-25] MEDS: POLYETHYL GLYCOL 3350 17gm PACKET PO SCH (10:10)
--- NOTE | 2017-05-25 14:48 | Neuropsych Progress Note ---
[facility] Subjective Date: 05/25/17 - Sujective/Severity of Illness Medications: Amlodipine Besylate (Norvasc) 5 mg PO DAILY [facility] Last Admin: 05/25/17 08:42 Dose: 5 mg Amoxicillin/Clavulanate Potassium (Augmentin) 500 mg PO TIDWM [facility] Last Admin: 05/25/17 12:01 Dose: 500 mg Benazepril HCl (Lotensin) 20 mg PO DAILY [facility] Last Admin: 05/25/17 08:42 Dose: 20 mg Cholecalciferol (Vit. D-3) 1,000 unit PO DAILY [facility] Last Admin: 05/23/17 08:12 Dose: Not Given Haloperidol (Haldol) 0.5 mg PO Q6H PRN PRN Reason: Anxiety/Agitation Haloperidol Lactate (Haldol) 0.5 mg IM Q6H PRN PRN Reason: Extreme agitation Lorazepam (Ativan Inj) 0.5 mg IM Q6H PRN PRN Reason: Anxiety/Agitation Lorazepam (Ativan) 0.5 mg PO Q6H PRN PRN Reason: Anxiety/Agitation Last Admin: 05/24/17 10:29 Dose: 0.5 mg Magnesium Hydroxide (Mom) 30 ml PO DAILY [facility] Last Admin: 05/25/17 10:10 Dose: 30 ml Metformin HCl (Glucophage) 500 mg PO BIDWM [facility] Last Admin: 05/25/17 08:42 Dose: 500 mg Mirtazapine (Remeron) 15 mg PO 2100 PRN Last Admin: 05/24/17 20:24 Dose: 15 mg [id number] Ethyl Esters (Lovaza) 1 gm PO DAILY [facility] Last Admin: 05/25/17 08:42 Dose: 1 gm Polyethylene Glycol (Miralax) 17 gm PO DAILY [facility] Last Admin: 05/25/17 10:10 Dose: 17 gm Simvastatin (Zocor) 20 mg PO HS [facility] Last Admin: 05/24/17 20:23 Dose: 20 mg Subjective: Pt seen and chart examined. Nursing reports pt doing a little better today. Less anxious. Does wander and exit seek at times but improved. On face to face the pt is pleasant but confused. She is only oriented to self. Denies pain. Tolerating meds Start Time: 14:00 Stop Time: 14:15 Mental Status Exam Vitals: Last Vital Signs Temp 98.2 F 05/25/17 08:00 Pulse 97 05/25/17 08:00 Resp 16 05/25/17 08:00 BP 149/99 H 05/25/17 08:00 Pulse Ox 100 05/25/17 08:00 Height: 1.55 m Weight: 53.6 kg - Mental Status Exam Muscle Strength/Tone: Normal Dressing: Casual Grooming: Good Attitude: Guarded Motor Activity: Retardation Eye Contact: Fair Speech: Slowed Volume: Soft Rhythm: Appropriate Rhythm Orientation: Oriented to person, Oriented to place Mood: Neutral Rate of Thoughts: Delayed Thought Organization: Confused Associations: Flight of Ideas Abstract Reasoning: Poor abstract reasoning Thought Content: Normal Perception/Psychotic: Perception Normal Fund of Knowledge: Poor fund of knowledge Memory: Poor-immediate, Poor-recent Insight: Poor Judgement: Poor Impulse Control: Poor - Laboratory Result Diagrams: 05/24/17 07:42 05/24/17 07:42 Laboratory Results - last 24 hr 05/24/17 05/25/17 05/25/17 21:08 06:38 09:52 Glucometer 107 85 205 05/25/17 14:25 Glucometer 101 Assessment and Plan (1) Major neurocognitive disorder due to Alzheimer's disease, possible Problem details: with behavioral disturbance Current visit: Yes Status: Acute (2) Delirium due to another medical condition Problem details: Suspect due to UTI Current visit: Yes Status: Acute Hospital Course Summary Disclaimer: The visit summary below is not to be considered part of the above Progress Note. Hospital Course: 05/23/17 Assessment Vascular dementia with behavioral disturbance. Hyperosmotic hypernatremia, present on admission. Hypercalcemia, present on admission. Asymptomatic UTI. Type 2 diabetes mellitus. Last hemoglobin A1c was 6.1% in April 2016 Hypertension. Hyperlipidemia. Gilbert's disease. Allergic rhinitis. Plan Dementia with behavioral changes -Per attending -Agree with obtaining dementia workup -TSH normal. Vitamin B12, folate, RPR pending. -check LFTs Hypernatremia -Encourage oral intake -On repeat today, sodium returned to normal level at 144 -Reassess BMP tomorrow morning to follow-up on hypernatremia and hypercalcemia. Hypercalcemia [mild]. -Improved on repeat lab work, but remains elevated. -She is not on calcium supplementation but does take cholecalciferol. -Hold vitamin D and check phosphorus level since cholecalciferol promotes secretion of calcium from bone to blood and promotes renal tubule phosphate resorption -Per up-to-date, symptoms of vitamin D toxicity include nausea, vomiting, loss of appetite, constipation, dehydration, fatigue, irritability, confusion, weakness and/or weight loss -check PTH, albumin, and ionized Ca Asymptomatic UTI/bacteria in urine -Normal white count, afebrile, patient also denies any urinary symptoms (though suspect she is not the best historian) -She was given 1 dose of Keflex in the emergency department. -We'll await to see what culture grows out before resuming antibiotic therapy. -If she starts to develop urinary symptoms, may restart antibiotics. -Repeat CBC tomorrow morning to monitor for leukocytosis. Abnormal EKG -Admission EKG showed possible junctional bradycardic rhythm -EKG repeated today revealed sinus bradycardia without acute ST segment elevation or depression. 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 -No other lesions noted in/around mouth -monitor, consider starting acyclovir if worsens. Type 2 diabetes -Continue metformin, carbohydrate controlled diet. -Recheck hemoglobin A1c. -Monitor blood sugars. 05/24/17 18:18 Remeron 15mg PO QHS 05/25/17 UTI- Continue on Augmentin for treatment of Escherichia coli urinary tract infection. Culture and sensitivity reviewed. HTN- noted. Blood pressure is slightly elevated today. We'll continue to monitor. Currently on Norvasc 5 milligrams daily. Could consider increasing to 10mg. Constipation-have asked nursing staff to increase their aggressiveness regarding bowel motivation. Started MiraLAX and milk of magnesia Diabetes-will continue to monitor blood sugars. Overall appear to be well controlled on metformin 500 twice a day. Continue to encourage purchase patient unit activities and provide a safe environment under the care of Dr. Cha 05/25/17 14:48 Continue current care
[2017-05-25] MEDS: SIMVASTATIN 20 MG TABLET PO SCH (20:15)
[2017-05-25] MEDS: ACETAMINOPHEN 325 MG TABLET PO PRN (20:36)
[2017-05-26] MEDS: BENAZEPRIL 20 MG TABLET PO SCH (08:59)
[2017-05-26] MEDS: OMEGA-3 ACID ESTERS 1 GM CAPSULE PO SCH (08:59)
[2017-05-26] MEDS: AMLODIPINE 5 MG TABLET PO SCH (08:59)
[2017-05-26] MEDS: AMOX/CLAV 500 MG/125 MG TABLET PO SCH ×3 (08:59→17:26)
[2017-05-26] MEDS: METFORMIN 500 MG TABLET PO SCH ×2 (08:59→17:26)
[2017-05-26] MEDS: POLYETHYL GLYCOL 3350 17gm PACKET PO SCH (08:59)
--- NOTE | 2017-05-26 17:48 | Neuropsych Progress Note ---
[facility] Subjective Date: 05/26/17 - Sujective/Severity of Illness Medications: Acetaminophen (Tylenol) 325 - 650 mg PO Q5H PRN PRN Reason: Discomfort Last Admin: 05/25/17 20:36 Dose: 650 mg Amlodipine Besylate (Norvasc) 5 mg PO DAILY [facility] Last Admin: 05/26/17 08:59 Dose: 5 mg Amoxicillin/Clavulanate Potassium (Augmentin) 500 mg PO TIDWM [facility] Last Admin: 05/26/17 17:26 Dose: 500 mg Benazepril HCl (Lotensin) 20 mg PO DAILY [facility] Last Admin: 05/26/17 08:59 Dose: 20 mg Cholecalciferol (Vit. D-3) 1,000 unit PO DAILY [facility] Last Admin: 05/23/17 08:12 Dose: Not Given Divalproex Sodium (Depakote) 250 mg PO BID [facility] Haloperidol (Haldol) 0.5 mg PO Q6H PRN PRN Reason: Anxiety/Agitation Haloperidol Lactate (Haldol) 0.5 mg IM Q6H PRN PRN Reason: Extreme agitation Lorazepam (Ativan Inj) 0.5 mg IM Q6H PRN PRN Reason: Anxiety/Agitation Lorazepam (Ativan) 0.5 mg PO Q6H PRN PRN Reason: Anxiety/Agitation Last Admin: 05/24/17 10:29 Dose: 0.5 mg Magnesium Hydroxide (Mom) 30 ml PO DAILY [facility] Last Admin: 05/26/17 08:59 Dose: 30 ml Metformin HCl (Glucophage) 500 mg PO BIDWM [facility] Last Admin: 05/26/17 17:26 Dose: 500 mg Mirtazapine (Remeron) 15 mg PO 2100 [facility] Cztcr-3-Xseu Ethyl Esters (Lovaza) 1 gm PO DAILY [facility] Last Admin: 05/26/17 08:59 Dose: 1 gm Polyethylene Glycol (Miralax) 17 gm PO DAILY [facility] Last Admin: 05/26/17 08:59 Dose: 17 gm Simvastatin (Zocor) 20 mg PO 2100 [facility] Last Admin: 05/25/17 20:15 Dose: 20 mg Subjective: Pt seen and chart examined. Nursing reports pt remains somewhat intrusive and irritable. Pt is anxious and needs constant redirection. Sleeping well. No aggressive behavior. On face to face the pt is somewhat flat. She asks if she can go home three times. She voices no concerns. Tolerating meds Start Time: 17:00 Stop Time: 17:15 Mental Status Exam Vitals: Last Vital Signs Temp 98.6 F 05/26/17 16:00 Pulse 66 05/26/17 16:00 Resp 22 05/26/17 16:00 BP 133/71 05/26/17 16:00 Pulse Ox 98 05/26/17 16:00 Height: 1.55 m Weight: 53.6 kg - Mental Status Exam Muscle Strength/Tone: Normal Dressing: Casual Grooming: Good Attitude: Guarded Motor Activity: Retardation Eye Contact: Fair Speech: Slowed Volume: Soft Rhythm: Appropriate Rhythm Orientation: Oriented to person, Oriented to place Mood: Neutral Rate of Thoughts: Delayed Thought Organization: Confused Associations: Flight of Ideas Abstract Reasoning: Poor abstract reasoning Thought Content: Normal Perception/Psychotic: Perception Normal Fund of Knowledge: Poor fund of knowledge Memory: Poor-immediate, Poor-recent Insight: Poor Judgement: Poor Impulse Control: Poor - Laboratory Result Diagrams: 05/24/17 07:42 05/24/17 07:42 Laboratory Results - last 24 hr 05/25/17 05/26/17 20:07 06:24 Glucometer 116 84 Assessment and Plan (1) Major neurocognitive disorder due to Alzheimer's disease, possible Problem details: with behavioral disturbance Current visit: Yes Status: Acute (2) Delirium due to another medical condition Problem details: Suspect due to UTI Current visit: Yes Status: Acute Hospital Course Summary Disclaimer: The visit summary below is not to be considered part of the above Progress Note. Hospital Course: 05/23/17 Assessment Vascular dementia with behavioral disturbance. Hyperosmotic hypernatremia, present on admission. Hypercalcemia, present on admission. Asymptomatic UTI. Type 2 diabetes mellitus. Last hemoglobin A1c was 6.1% in April 2016 Hypertension. Hyperlipidemia. Gilbert's disease. Allergic rhinitis. Plan Dementia with behavioral changes -Per attending -Agree with obtaining dementia workup -TSH normal. Vitamin B12, folate, RPR pending. -check LFTs Hypernatremia -Encourage oral intake -On repeat today, sodium returned to normal level at 144 -Reassess BMP tomorrow morning to follow-up on hypernatremia and hypercalcemia. Hypercalcemia [mild]. -Improved on repeat lab work, but remains elevated. -She is not on calcium supplementation but does take cholecalciferol. -Hold vitamin D and check phosphorus level since cholecalciferol promotes secretion of calcium from bone to blood and promotes renal tubule phosphate resorption -Per up-to-date, symptoms of vitamin D toxicity include nausea, vomiting, loss of appetite, constipation, dehydration, fatigue, irritability, confusion, weakness and/or weight loss -check PTH, albumin, and ionized Ca Asymptomatic UTI/bacteria in urine -Normal white count, afebrile, patient also denies any urinary symptoms (though suspect she is not the best historian) -She was given 1 dose of Keflex in the emergency department. -We'll await to see what culture grows out before resuming antibiotic therapy. -If she starts to develop urinary symptoms, may restart antibiotics. -Repeat CBC tomorrow morning to monitor for leukocytosis. Abnormal EKG -Admission EKG showed possible junctional bradycardic rhythm -EKG repeated today revealed sinus bradycardia without acute ST segment elevation or depression. 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 -No other lesions noted in/around mouth -monitor, consider starting acyclovir if worsens. Type 2 diabetes -Continue metformin, carbohydrate controlled diet. -Recheck hemoglobin A1c. -Monitor blood sugars. 05/24/17 18:18 Remeron 15mg PO QHS 05/25/17 UTI- Continue on Augmentin for treatment of Escherichia coli urinary tract infection. Culture and sensitivity reviewed. HTN- noted. Blood pressure is slightly elevated today. We'll continue to monitor. Currently on Norvasc 5 milligrams daily. Could consider increasing to 10mg. Constipation-have asked nursing staff to increase their aggressiveness regarding bowel motivation. Started MiraLAX and milk of magnesia Diabetes-will continue to monitor blood sugars. Overall appear to be well controlled on metformin 500 twice a day. Continue to encourage purchase patient unit activities and provide a safe environment under the care of Dr. Cha 05/25/17 14:48 Continue current care 05/26/17 17:47 Depakote 250mg PO BID
[2017-05-26] MEDS: ACETAMINOPHEN 325 MG TABLET PO PRN (19:43)
[2017-05-26] MEDS: DIVALPROEX 250 MG TABLET PO SCH (19:43)
[2017-05-26] MEDS: SIMVASTATIN 20 MG TABLET PO SCH (19:43)
[2017-05-26] MEDS: MIRTAZAPINE 15 MG TABLET PO SCH (19:43)
[2017-05-27] MEDS: BENAZEPRIL 20 MG TABLET PO SCH (08:22)
[2017-05-27] MEDS: METFORMIN 500 MG TABLET PO SCH ×2 (08:22→17:01)
[2017-05-27] MEDS: DIVALPROEX 250 MG TABLET PO SCH ×2 (08:22→20:45)
[2017-05-27] MEDS: AMOX/CLAV 500 MG/125 MG TABLET PO SCH ×3 (08:22→17:01)
[2017-05-27] MEDS: POLYETHYL GLYCOL 3350 17gm PACKET PO SCH (08:23)
[2017-05-27] MEDS: AMLODIPINE 5 MG TABLET PO SCH (08:23)
[2017-05-27] MEDS: OMEGA-3 ACID ESTERS 1 GM CAPSULE PO SCH (08:23)
--- NOTE | 2017-05-27 11:54 | Neuropsych Progress Note ---
[facility] Subjective Date: 05/27/17 - Sujective/Severity of Illness Medications: Acetaminophen (Tylenol) 325 - 650 mg PO Q5H PRN PRN Reason: Discomfort Last Admin: 05/26/17 19:43 Dose: 650 mg Amlodipine Besylate (Norvasc) 5 mg PO DAILY [facility] Last Admin: 05/27/17 08:23 Dose: 5 mg Amoxicillin/Clavulanate Potassium (Augmentin) 500 mg PO TIDWM [facility] Last Admin: 05/27/17 08:22 Dose: 500 mg Benazepril HCl (Lotensin) 20 mg PO DAILY [facility] Last Admin: 05/27/17 08:22 Dose: 20 mg Cholecalciferol (Vit. D-3) 1,000 unit PO DAILY [facility] Last Admin: 05/23/17 08:12 Dose: Not Given Divalproex Sodium (Depakote) 250 mg PO BID [facility] Last Admin: 05/27/17 08:22 Dose: 250 mg Haloperidol (Haldol) 0.5 mg PO Q6H PRN PRN Reason: Anxiety/Agitation Haloperidol Lactate (Haldol) 0.5 mg IM Q6H PRN PRN Reason: Extreme agitation Lorazepam (Ativan Inj) 0.5 mg IM Q6H PRN PRN Reason: Anxiety/Agitation Lorazepam (Ativan) 0.5 mg PO Q6H PRN PRN Reason: Anxiety/Agitation Last Admin: 05/24/17 10:29 Dose: 0.5 mg Magnesium Hydroxide (Mom) 30 ml PO DAILY [facility] Last Admin: 05/27/17 08:23 Dose: Not Given Metformin HCl (Glucophage) 500 mg PO BIDWM [facility] Last Admin: 05/27/17 08:22 Dose: 500 mg Mirtazapine (Remeron) 15 mg PO 2100 [facility] Last Admin: 05/26/17 19:43 Dose: 15 mg Rufun-2-Tsyu Ethyl Esters (Lovaza) 1 gm PO DAILY [facility] Last Admin: 05/27/17 08:23 Dose: 1 gm Polyethylene Glycol (Miralax) 17 gm PO DAILY [facility] Last Admin: 05/27/17 08:23 Dose: 17 gm Simvastatin (Zocor) 20 mg PO 2100 [facility] Last Admin: 05/26/17 19:43 Dose: 20 mg Subjective: Pt seen and chart examined. Nursing reports pt is sleeping well and has a good appetite. No behaviors noted. On face to face to betsey the pt is pleasant but confused. She is only oriented to self. Asks several times to go home. states he feels she is back near baseline. Tolerating meds Start Time: 11:00 Stop Time: 11:15 Mental Status Exam Vitals: Last Vital Signs Temp 97.9 F 05/27/17 08:00 Pulse 91 05/27/17 08:00 Resp 16 05/27/17 08:00 BP 142/89 H 05/27/17 08:00 Pulse Ox 98 05/27/17 08:00 Height: 1.55 m Weight: 53.6 kg - Mental Status Exam Muscle Strength/Tone: Normal Dressing: Casual Grooming: Good Attitude: Guarded Motor Activity: Retardation Eye Contact: Fair Speech: Slowed Volume: Soft Rhythm: Appropriate Rhythm Orientation: Oriented to person, Oriented to place Mood: Neutral Rate of Thoughts: Delayed Thought Organization: Confused Associations: Flight of Ideas Abstract Reasoning: Poor abstract reasoning Thought Content: Normal Perception/Psychotic: Perception Normal Fund of Knowledge: Poor fund of knowledge Memory: Poor-immediate, Poor-recent Insight: Poor Judgement: Poor Impulse Control: Poor - Laboratory Result Diagrams: 05/24/17 07:42 05/24/17 07:42 Assessment and Plan (1) Major neurocognitive disorder due to Alzheimer's disease, possible Problem details: with behavioral disturbance Current visit: Yes Status: Acute (2) Delirium due to another medical condition Problem details: Suspect due to UTI Current visit: Yes Status: Acute Hospital Course Summary Disclaimer: The visit summary below is not to be considered part of the above Progress Note. Hospital Course: 05/23/17 Assessment Vascular dementia with behavioral disturbance. Hyperosmotic hypernatremia, present on admission. Hypercalcemia, present on admission. Asymptomatic UTI. Type 2 diabetes mellitus. Last hemoglobin A1c was 6.1% in April 2016 Hypertension. Hyperlipidemia. Gilbert's disease. Allergic rhinitis. Plan Dementia with behavioral changes -Per attending -Agree with obtaining dementia workup -TSH normal. Vitamin B12, folate, RPR pending. -check LFTs Hypernatremia -Encourage oral intake -On repeat today, sodium returned to normal level at 144 -Reassess BMP tomorrow morning to follow-up on hypernatremia and hypercalcemia. Hypercalcemia [mild]. -Improved on repeat lab work, but remains elevated. -She is not on calcium supplementation but does take cholecalciferol. -Hold vitamin D and check phosphorus level since cholecalciferol promotes secretion of calcium from bone to blood and promotes renal tubule phosphate resorption -Per up-to-date, symptoms of vitamin D toxicity include nausea, vomiting, loss of appetite, constipation, dehydration, fatigue, irritability, confusion, weakness and/or weight loss -check PTH, albumin, and ionized Ca Asymptomatic UTI/bacteria in urine -Normal white count, afebrile, patient also denies any urinary symptoms (though suspect she is not the best historian) -She was given 1 dose of Keflex in the emergency department. -We'll await to see what culture grows out before resuming antibiotic therapy. -If she starts to develop urinary symptoms, may restart antibiotics. -Repeat CBC tomorrow morning to monitor for leukocytosis. Abnormal EKG -Admission EKG showed possible junctional bradycardic rhythm -EKG repeated today revealed sinus bradycardia without acute ST segment elevation or depression. 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 -No other lesions noted in/around mouth -monitor, consider starting acyclovir if worsens. Type 2 diabetes -Continue metformin, carbohydrate controlled diet. -Recheck hemoglobin A1c. -Monitor blood sugars. 05/24/17 18:18 Remeron 15mg PO QHS 05/25/17 UTI- Continue on Augmentin for treatment of Escherichia coli urinary tract infection. Culture and sensitivity reviewed. HTN- noted. Blood pressure is slightly elevated today. We'll continue to monitor. Currently on Norvasc 5 milligrams daily. Could consider increasing to 10mg. Constipation-have asked nursing staff to increase their aggressiveness regarding bowel motivation. Started MiraLAX and milk of magnesia Diabetes-will continue to monitor blood sugars. Overall appear to be well controlled on metformin 500 twice a day. Continue to encourage purchase patient unit activities and provide a safe environment under the care of Dr. Cha 05/25/17 14:48 Continue current care 05/26/17 17:47 Depakote 250mg PO BID 05/27/17 11:53 Continue current care
[2017-05-27] MEDS: MIRTAZAPINE 15 MG TABLET PO SCH (20:45)
[2017-05-27] MEDS: SIMVASTATIN 20 MG TABLET PO SCH (20:45)
[2017-05-28] MEDS: OMEGA-3 ACID ESTERS 1 GM CAPSULE PO SCH (08:17)
[2017-05-28] MEDS: POLYETHYL GLYCOL 3350 17gm PACKET PO SCH (08:17)
[2017-05-28] MEDS: AMOX/CLAV 500 MG/125 MG TABLET PO SCH ×3 (08:17→17:03)
[2017-05-28] MEDS: DIVALPROEX 250 MG TABLET PO SCH ×3 (08:17→20:47)
[2017-05-28] MEDS: AMLODIPINE 5 MG TABLET PO SCH (08:17)
[2017-05-28] MEDS: BENAZEPRIL 20 MG TABLET PO SCH (08:17)
[2017-05-28] MEDS: METFORMIN 500 MG TABLET PO SCH ×2 (08:17→17:03)
--- NOTE | 2017-05-28 11:09 | Neuropsych Progress Note ---
[facility] Subjective Date: 05/28/17 - Sujective/Severity of Illness Medications: Acetaminophen (Tylenol) 325 - 650 mg PO Q5H PRN PRN Reason: Discomfort Last Admin: 05/26/17 19:43 Dose: 650 mg Amlodipine Besylate (Norvasc) 5 mg PO DAILY [facility] Last Admin: 05/28/17 08:17 Dose: 5 mg Amoxicillin/Clavulanate Potassium (Augmentin) 500 mg PO TIDWM [facility] Last Admin: 05/28/17 08:17 Dose: 500 mg Benazepril HCl (Lotensin) 20 mg PO DAILY [facility] Last Admin: 05/28/17 08:17 Dose: 20 mg Cholecalciferol (Vit. D-3) 1,000 unit PO DAILY [facility] Last Admin: 05/23/17 08:12 Dose: Not Given Divalproex Sodium (Depakote) 250 mg PO BID [facility] Last Admin: 05/28/17 08:17 Dose: 250 mg Haloperidol (Haldol) 0.5 mg PO Q6H PRN PRN Reason: Anxiety/Agitation Haloperidol Lactate (Haldol) 0.5 mg IM Q6H PRN PRN Reason: Extreme agitation Lorazepam (Ativan Inj) 0.5 mg IM Q6H PRN PRN Reason: Anxiety/Agitation Lorazepam (Ativan) 0.5 mg PO Q6H PRN PRN Reason: Anxiety/Agitation Last Admin: 05/24/17 10:29 Dose: 0.5 mg Magnesium Hydroxide (Mom) 30 ml PO DAILY [facility] Last Admin: 05/28/17 08:17 Dose: 30 ml Metformin HCl (Glucophage) 500 mg PO BIDWM [facility] Last Admin: 05/28/17 08:17 Dose: 500 mg Mirtazapine (Remeron) 15 mg PO 2100 [facility] Last Admin: 05/27/17 20:45 Dose: 15 mg Rchih-5-Uysa Ethyl Esters (Lovaza) 1 gm PO DAILY [facility] Last Admin: 05/28/17 08:17 Dose: 1 gm Polyethylene Glycol (Miralax) 17 gm PO DAILY [facility] Last Admin: 05/28/17 08:17 Dose: 17 gm Simvastatin (Zocor) 20 mg PO 2100 [facility] Last Admin: 05/27/17 20:45 Dose: 20 mg Trolamine Salicylate (Aspercreme) 1 applic TOP TID PRN Last Admin: 05/27/17 21:03 Dose: 1 applic Subjective: Pt seen and chart examined. Nursing reports pt is doing better. Less intrusive and anxious. Sleeping and eating well. No behaviors noted. On face to face the pt is pleasant but confused. She is only oriented to self. She asks to go home. Son and are present and feels she is doing better. They have no concerns Start Time: 10:00 Stop Time: 10:15 Mental Status Exam Vitals: Last Vital Signs Temp 97.9 F 05/28/17 08:00 Pulse 100 05/28/17 08:00 Resp 16 05/28/17 08:00 BP 146/83 H 05/28/17 08:00 Pulse Ox 98 05/28/17 08:00 Height: 1.55 m Weight: 53.6 kg - Mental Status Exam Muscle Strength/Tone: Normal Dressing: Casual Grooming: Good Attitude: Guarded Motor Activity: Retardation Eye Contact: Fair Speech: Slowed Volume: Soft Rhythm: Appropriate Rhythm Orientation: Oriented to person, Oriented to place Mood: Neutral Rate of Thoughts: Delayed Thought Organization: Confused Associations: Flight of Ideas Abstract Reasoning: Poor abstract reasoning Thought Content: Normal Perception/Psychotic: Perception Normal Fund of Knowledge: Poor fund of knowledge Memory: Poor-immediate, Poor-recent Insight: Poor Judgement: Poor Impulse Control: Poor - Laboratory Result Diagrams: 05/24/17 07:42 05/24/17 07:42 Assessment and Plan (1) Major neurocognitive disorder due to Alzheimer's disease, possible Problem details: with behavioral disturbance Current visit: Yes Status: Acute (2) Delirium due to another medical condition Problem details: Suspect due to UTI Current visit: Yes Status: Acute Hospital Course Summary Disclaimer: The visit summary below is not to be considered part of the above Progress Note. Hospital Course: 05/23/17 Assessment Vascular dementia with behavioral disturbance. Hyperosmotic hypernatremia, present on admission. Hypercalcemia, present on admission. Asymptomatic UTI. Type 2 diabetes mellitus. Last hemoglobin A1c was 6.1% in April 2016 Hypertension. Hyperlipidemia. Gilbert's disease. Allergic rhinitis. Plan Dementia with behavioral changes -Per attending -Agree with obtaining dementia workup -TSH normal. Vitamin B12, folate, RPR pending. -check LFTs Hypernatremia -Encourage oral intake -On repeat today, sodium returned to normal level at 144 -Reassess BMP tomorrow morning to follow-up on hypernatremia and hypercalcemia. Hypercalcemia [mild]. -Improved on repeat lab work, but remains elevated. -She is not on calcium supplementation but does take cholecalciferol. -Hold vitamin D and check phosphorus level since cholecalciferol promotes secretion of calcium from bone to blood and promotes renal tubule phosphate resorption -Per up-to-date, symptoms of vitamin D toxicity include nausea, vomiting, loss of appetite, constipation, dehydration, fatigue, irritability, confusion, weakness and/or weight loss -check PTH, albumin, and ionized Ca Asymptomatic UTI/bacteria in urine -Normal white count, afebrile, patient also denies any urinary symptoms (though suspect she is not the best historian) -She was given 1 dose of Keflex in the emergency department. -We'll await to see what culture grows out before resuming antibiotic therapy. -If she starts to develop urinary symptoms, may restart antibiotics. -Repeat CBC tomorrow morning to monitor for leukocytosis. Abnormal EKG -Admission EKG showed possible junctional bradycardic rhythm -EKG repeated today revealed sinus bradycardia without acute ST segment elevation or depression. 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 -No other lesions noted in/around mouth -monitor, consider starting acyclovir if worsens. Type 2 diabetes -Continue metformin, carbohydrate controlled diet. -Recheck hemoglobin A1c. -Monitor blood sugars. 05/24/17 18:18 Remeron 15mg PO QHS 05/25/17 UTI- Continue on Augmentin for treatment of Escherichia coli urinary tract infection. Culture and sensitivity reviewed. HTN- noted. Blood pressure is slightly elevated today. We'll continue to monitor. Currently on Norvasc 5 milligrams daily. Could consider increasing to 10mg. Constipation-have asked nursing staff to increase their aggressiveness regarding bowel motivation. Started MiraLAX and milk of magnesia Diabetes-will continue to monitor blood sugars. Overall appear to be well controlled on metformin 500 twice a day. Continue to encourage purchase patient unit activities and provide a safe environment under the care of Dr. Cha 05/25/17 14:48 Continue current care 05/26/17 17:47 Depakote 250mg PO BID 05/27/17 11:53 Continue current care 05/28/17 11:09 Continue current care
--- NOTE | 2017-05-28 12:04 | Progress Note ---
Subjective: Nahomi is seen today in follow up for her dementia with behavioral disturbances. She is seen while walking around the day room. She immediately asks if she can go home and it was explained to her that she needs to discuss that with the psychiatrist. She denies any other concerns or complaints including no chest pain, shortness of breath, abdominal pain, nausea, vomiting or dysuria. She is currently undergoing treatment for a UTI which was found to be pansensitive and is being treated with Augmentin. She denies any concerns with diarrhea or constipation. Her appetite has been good and bowels are moving. Patient chart reviewed and indicates that overall, patient is doing better. She has reportedly been less intrusive and less anxious and without behaviors. On exam, she is standing in the day room and is alert and orientated to person only. Cardiac exam reveals regular rate and rhythm. Lungs are clear to auscultation bilaterally. Abdomen is soft, nontender with active bowel sounds. No edema noted to lower extremities and she ambulates easily without assistance. No recent labs to report. Objective Vital signs: Temperature 97.9 F 05/28/17 08:00 Pulse Rate 100 05/28/17 08:00 Respiratory Rate 16 05/28/17 08:00 Blood Pressure 146/83 H 05/28/17 08:00 Pulse Oximetry 98 05/28/17 08:00 Oxygen Delivery Method Room Air Height: 5 ft 1 in Weight: 118 lb 2.684 oz Body Mass Index: 22.3 - Constitutional Present: no acute distress, well nourished, well developed, cooperative - Routine HEENT Exam Head: Present: normocephalic, atraumatic Eye: Present: PERRL. Absent: conjunctival icterus ENT: Present: mucous membranes moist - Routine Respiratory Exam Present: CTA bilaterally. Absent: stridor, wheezes, crackles - Routine Cardiovascular Exam Present: RRR, S1, S2 - Routine Abdominal Exam Present: soft, normoactive bowel sounds, non distended, non tender - Routine Extremities Exam Present: no edema, non tender, pulses intact - Routine Back/Spine/Pelvis Exam Back/Spine: Present: full ROM - Routine Musculoskeletal Exam Musculoskeletal: Present: moving extremities well - Routine Skin Exam Present: intact, dry, warm Comments: afebrile - Routine Neurological Exam Present: alert, moving all extremities, hearing grossly intact, normal speech. Absent: oriented X3 - Routine Lymphatic Exam Lymphatic: Absent: lymphedema - Routine Psychiatric Exam Present: cooperative Comments: flat affect Results - Labs CBC & Chem 7: 05/24/17 07:42 05/24/17 07:42 Assessment and Plan (1) Hypernatremia Current visit: Yes Status: Acute (2) Bacteria in urine Current visit: Yes Status: Acute Resuscitation Status: Full Code Assessment and Plan: 05/28/17-Mirakian. UTI, acute. * UTI - pansensitive. Augmentin initiated 05/24. Will discontinue Augmentin . Monitor closely for reoccurrence. Vascular dementia with behavioral disturbance. * Continue psychiatric care per team. PRN medications as indicated. Nursing reports overall patient is doing better and less intrusive with less anxiety. Continue to provide safe and supportive environment. Encourage participation in floor activities. Anticipate discharge in near future. Hyperosmotic hypernatremia, present on admission. * Labs from 05/24 showed sodium 146. Will recheck labs in AM to monitor blood counts, electrolytes and renal function. Encourage oral fluid intake. Type 2 diabetes mellitus. * Last hemoglobin A1c was 6.1% in April 2016 and improved to 5.3 on 05/23/17. Blood sugars well controlled. Continue to monitor closely. Continue home metformin. Hypertension, chronic. * Blood pressure remains slightly elevated with systolic averaging in the 140' s. Will increase Norvasc to 10mg daily and monitor closely for signs of hypotension. Hyperlipidemia, chronic. * Continue home simvastatin and follow as outpatient. Constipation. * Continue with bowel motivation in light of recent constipation. - Time spent with patient 25 - 35 minutes Sepsis Assessment - Evaluation Sepsis screening result: No Definite Risk Hospital Course Summary Disclaimer: The visit summary below is not to be considered part of the above Progress Note. Hospital Course: 05/23/17 Assessment Vascular dementia with behavioral disturbance. Hyperosmotic hypernatremia, present on admission. Hypercalcemia, present on admission. Asymptomatic UTI. Type 2 diabetes mellitus. Last hemoglobin A1c was 6.1% in April 2016 Hypertension. Hyperlipidemia. Gilbert's disease. Allergic rhinitis. Plan Dementia with behavioral changes -Per attending -Agree with obtaining dementia workup -TSH normal. Vitamin B12, folate, RPR pending. -check LFTs Hypernatremia -Encourage oral intake -On repeat today, sodium returned to normal level at 144 -Reassess BMP tomorrow morning to follow-up on hypernatremia and hypercalcemia. Hypercalcemia [mild]. -Improved on repeat lab work, but remains elevated. -She is not on calcium supplementation but does take cholecalciferol. -Hold vitamin D and check phosphorus level since cholecalciferol promotes secretion of calcium from bone to blood and promotes renal tubule phosphate resorption -Per up-to-date, symptoms of vitamin D toxicity include nausea, vomiting, loss of appetite, constipation, dehydration, fatigue, irritability, confusion, weakness and/or weight loss -check PTH, albumin, and ionized Ca Asymptomatic UTI/bacteria in urine -Normal white count, afebrile, patient also denies any urinary symptoms (though suspect she is not the best historian) -She was given 1 dose of Keflex in the emergency department. -We'll await to see what culture grows out before resuming antibiotic therapy. -If she starts to develop urinary symptoms, may restart antibiotics. -Repeat CBC tomorrow morning to monitor for leukocytosis. Abnormal EKG -Admission EKG showed possible junctional bradycardic rhythm -EKG repeated today revealed sinus bradycardia without acute ST segment elevation or depression. 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 -No other lesions noted in/around mouth -monitor, consider starting acyclovir if worsens. Type 2 diabetes -Continue metformin, carbohydrate controlled diet. -Recheck hemoglobin A1c. -Monitor blood sugars. 05/24/17 18:18 Remeron 15mg PO QHS 05/25/17 UTI- Continue on Augmentin for treatment of Escherichia coli urinary tract infection. Culture and sensitivity reviewed. HTN- noted. Blood pressure is slightly elevated today. We'll continue to monitor. Currently on Norvasc 5 milligrams daily. Could consider increasing to 10mg. Constipation-have asked nursing staff to increase their aggressiveness regarding bowel motivation. Started MiraLAX and milk of magnesia Diabetes-will continue to monitor blood sugars. Overall appear to be well controlled on metformin 500 twice a day. Continue to encourage purchase patient unit activities and provide a safe environment under the care of Dr. Cha 05/25/17 14:48 Continue current care 05/26/17 17:47 Depakote 250mg PO BID 05/27/17 11:53 Continue current care 05/28/17 11:09 Continue current care 05/28/17 12:14 - Mirakian. UTI, acute. * UTI - pansensitive. Augmentin initiated 05/24. Will discontinue Augmentin . Monitor closely for reoccurrence. Vascular dementia with behavioral disturbance. * Continue psychiatric care per team. PRN medications as indicated. Nursing reports overall patient is doing better and less intrusive with less anxiety. Continue to provide safe and supportive environment. Encourage participation in floor activities. Anticipate discharge in near future. Hyperosmotic hypernatremia, present on admission. * Labs from 05/24 showed sodium 146. Will recheck labs in AM to monitor blood counts, electrolytes and renal function. Encourage oral fluid intake. Type 2 diabetes mellitus. * Last hemoglobin A1c was 6.1% in April 2016 and improved to 5.3 on 05/23/17. Blood sugars well controlled. Continue to monitor closely. Continue home metformin. Hypertension, chronic. * Blood pressure remains slightly elevated with systolic averaging in the 140' s. Will increase Norvasc to 10mg daily and monitor closely for signs of hypotension. Hyperlipidemia, chronic. * Continue home simvastatin and follow as outpatient. Constipation. * Continue with bowel motivation in light of recent constipation.
[2017-05-28] MEDS: LACTOBACILLUS (15B cfu) CAPSULE PO SCH (17:03)
[2017-05-28] MEDS: MIRTAZAPINE 15 MG TABLET PO SCH ×2 (19:25→20:47)
[2017-05-28] MEDS: SIMVASTATIN 20 MG TABLET PO SCH ×2 (19:25→20:47)
[2017-05-28] MEDS: ACETAMINOPHEN 325 MG TABLET PO PRN (22:01)
[2017-05-29] MEDS: LACTOBACILLUS (15B cfu) CAPSULE PO SCH ×2 (08:08→16:58)
[2017-05-29] MEDS: METFORMIN 500 MG TABLET PO SCH ×2 (08:08→16:58)
[2017-05-29] MEDS: AMOX/CLAV 500 MG/125 MG TABLET PO SCH ×3 (08:08→16:58)
[2017-05-29] MEDS: DIVALPROEX 250 MG TABLET PO SCH ×2 (08:09→19:43)
[2017-05-29] MEDS: POLYETHYL GLYCOL 3350 17gm PACKET PO SCH (08:09)
[2017-05-29] MEDS: OMEGA-3 ACID ESTERS 1 GM CAPSULE PO SCH (08:09)
[2017-05-29] MEDS: BENAZEPRIL 20 MG TABLET PO SCH (08:09)
[2017-05-29] MEDS: AMLODIPINE 10 MG TABLET PO SCH (10:24)
--- NOTE | 2017-05-29 15:13 | XRay Report ---
LOCATION OF DICTATION: [facility] EXAM: XR chest 2V HISTORY: mental status change COMPARISON: No prior studies available for comparison. FINDINGS: The heart size is normal. The mediastinal configuration is unremarkable. There are no consolidating opacities or pleural effusions. There is no evidence for a pneumothorax. The osseous structures are within normal limits. IMPRESSION: No acute cardiopulmonary abnormality is identified. .
--- NOTE | 2017-05-29 15:14 | XRay Report ---
EXAM: XR shoulder LT 2-3 views LOCATION OF DICTATION: [facility] HISTORY: Decrease range of motion, pain. COMPARISON: No prior studies available for comparison. FINDINGS: Normal alignment of the glenohumeral and acromioclavicular joints without dislocation or subluxation. There is normal osseous mineralization. There are no acute fractures demonstrated. No significant degenerative arthropathy. The surrounding soft tissues are within normal limits. The visible lung field is clear. IMPRESSION: 1. No evidence for malalignment or acute fracture. .
--- NOTE | 2017-05-29 15:18 | CT Scan Report ---
EXAM: CT head/brain wo con LOCATION OF DICTATION: [facility] HISTORY: mental status change COMPARISON: No prior studies available for comparison. TECHNIQUE: Axial CT images through the head were performed without contrast. Iterative Reconstruction dose reducing technique was utilized. FINDINGS: The ventricles are of normal size, shape, and contour for the patient's age. There is mild periventricular white matter disease likely secondary to chronic small vessel ischemia. The brainstem, cerebellum, and cerebral hemispheres otherwise have a normal morphology and CT attenuation. There is no evidence of midline displacement. No hemorrhage, signs of acute territorial stroke, mass effect, mass lesions, or edema is evident. The visualized portions of the skull base, midface, and calvarium demonstrate no abnormality. The paranasal sinuses are well aerated and free of significant disease. The tympanic and mastoid cavities appear normal. IMPRESSION: No acute intracranial abnormality or hemorrhage. .
--- NOTE | 2017-05-29 17:56 | Neuropsych Progress Note ---
[facility] Subjective Date: 05/29/17 - Sujective/Severity of Illness Medications: Acetaminophen (Tylenol) 325 - 650 mg PO Q5H PRN PRN Reason: Discomfort Last Admin: 05/28/17 22:01 Dose: 650 mg Amlodipine Besylate (Norvasc) 10 mg PO DAILY [facility] Last Admin: 05/29/17 10:24 Dose: 10 mg Amoxicillin/Clavulanate Potassium (Augmentin) 500 mg PO TIDWM [facility] Stop: 05/31/17 23:59 Last Admin: 05/29/17 16:58 Dose: 500 mg Benazepril HCl (Lotensin) 20 mg PO DAILY [facility] Last Admin: 05/29/17 08:09 Dose: 20 mg Cholecalciferol (Vit. D-3) 1,000 unit PO DAILY [facility] Last Admin: 05/23/17 08:12 Dose: Not Given Divalproex Sodium (Depakote) 250 mg PO BID [facility] Last Admin: 05/29/17 08:09 Dose: 250 mg Haloperidol (Haldol) 0.5 mg PO Q6H PRN PRN Reason: Anxiety/Agitation Haloperidol Lactate (Haldol) 0.5 mg IM Q6H PRN PRN Reason: Extreme agitation Lactobacillus Acidophilus (Culturelle) 2 cap PO BIDWM [facility] Last Admin: 05/29/17 16:58 Dose: 2 cap Lorazepam (Ativan Inj) 0.5 mg IM Q6H PRN PRN Reason: Anxiety/Agitation Lorazepam (Ativan) 0.5 mg PO Q6H PRN PRN Reason: Anxiety/Agitation Last Admin: 05/24/17 10:29 Dose: 0.5 mg Magnesium Hydroxide (Mom) 30 ml PO DAILY [facility] Last Admin: 05/29/17 08:10 Dose: 30 ml Metformin HCl (Glucophage) 500 mg PO BIDWM [facility] Last Admin: 05/29/17 16:58 Dose: 500 mg Mirtazapine (Remeron) 15 mg PO 2100 [facility] Last Admin: 05/28/17 20:47 Dose: Not Given [id number] Ethyl Esters (Lovaza) 1 gm PO DAILY [facility] Last Admin: 05/29/17 08:09 Dose: 1 gm Polyethylene Glycol (Miralax) 17 gm PO DAILY [facility] Last Admin: 05/29/17 08:09 Dose: 17 gm Simvastatin (Zocor) 20 mg PO 2100 [facility] Last Admin: 05/28/17 20:47 Dose: Not Given Trolamine Salicylate (Aspercreme) 1 applic TOP TID PRN Last Admin: 05/28/17 19:25 Dose: 1 applic Subjective: Pt seen and chart examined. Nursing reports pt is doing well. Sleeping well and has a good appetite. No behaviors noted. On face to face the pt states she is doing well. She is pleasant but confused. Only oriented x 1. Voices no concerns. Tolerating meds Start Time: 17:00 Stop Time: 17:15 Mental Status Exam Vitals: Last Vital Signs Temp 97.6 F 05/29/17 15:49 Pulse 84 05/29/17 15:49 Resp 16 05/29/17 15:49 BP 106/69 05/29/17 15:49 Pulse Ox 99 05/29/17 15:49 Height: 1.55 m Weight: 53.6 kg - Mental Status Exam Muscle Strength/Tone: Normal Dressing: Casual Grooming: Good Attitude: Guarded Motor Activity: Retardation Eye Contact: Fair Speech: Slowed Volume: Soft Rhythm: Appropriate Rhythm Orientation: Oriented to person, Oriented to place Mood: Neutral Rate of Thoughts: Delayed Thought Organization: Confused Associations: Flight of Ideas Abstract Reasoning: Poor abstract reasoning Thought Content: Normal Perception/Psychotic: Perception Normal Fund of Knowledge: Poor fund of knowledge Memory: Poor-immediate, Poor-recent Insight: Poor Judgement: Poor Impulse Control: Poor - Laboratory Result Diagrams: 05/29/17 04:35 05/29/17 04:35 Laboratory Results - last 24 hr 05/29/17 05/29/17 04:35 04:35 WBC 7.2 RBC 4.45 Hgb 12.5 Hct 39.8 MCV 89.4 MCH 28.1 MCHC 31.4 RDW Std Deviation 45.4 Plt Count 241 MPV 9.4 Immature Gran % (Auto) 0.1 Neut % (Auto) 55.7 Lymph % (Auto) 33.6 [place] % (Auto) 7.6 Eos % (Auto) 2.4 Baso % (Auto) 0.6 Neut # 4.0 Lymph # 2.4 [place] # 0.5 Eos # 0.2 Baso # 0.0 Abs Immat Gran (auto) 0.01 Turbidity < 20 Sodium 144 Potassium 4.8 Chloride 104 Carbon Dioxide 31 H Anion Gap 9 BUN 18.0 H Creatinine 0.7 GFR Calculation 82 BUN/Creatinine Ratio 26 Glucose 84 Calculated Osmolality 278 Calcium 9.9 Icterus Index < 2 Specimen Hemolysis < 15 Assessment and Plan (1) Major neurocognitive disorder due to Alzheimer's disease, possible Problem details: with behavioral disturbance Current visit: Yes Status: Acute (2) Delirium due to another medical condition Problem details: Suspect due to UTI Current visit: Yes Status: Acute Hospital Course Summary Disclaimer: The visit summary below is not to be considered part of the above Progress Note. Hospital Course: 05/23/17 Assessment Vascular dementia with behavioral disturbance. Hyperosmotic hypernatremia, present on admission. Hypercalcemia, present on admission. Asymptomatic UTI. Type 2 diabetes mellitus. Last hemoglobin A1c was 6.1% in April 2016 Hypertension. Hyperlipidemia. Gilbert's disease. Allergic rhinitis. Plan Dementia with behavioral changes -Per attending -Agree with obtaining dementia workup -TSH normal. Vitamin B12, folate, RPR pending. -check LFTs Hypernatremia -Encourage oral intake -On repeat today, sodium returned to normal level at 144 -Reassess BMP tomorrow morning to follow-up on hypernatremia and hypercalcemia. Hypercalcemia [mild]. -Improved on repeat lab work, but remains elevated. -She is not on calcium supplementation but does take cholecalciferol. -Hold vitamin D and check phosphorus level since cholecalciferol promotes secretion of calcium from bone to blood and promotes renal tubule phosphate resorption -Per up-to-date, symptoms of vitamin D toxicity include nausea, vomiting, loss of appetite, constipation, dehydration, fatigue, irritability, confusion, weakness and/or weight loss -check PTH, albumin, and ionized Ca Asymptomatic UTI/bacteria in urine -Normal white count, afebrile, patient also denies any urinary symptoms (though suspect she is not the best historian) -She was given 1 dose of Keflex in the emergency department. -We'll await to see what culture grows out before resuming antibiotic therapy. -If she starts to develop urinary symptoms, may restart antibiotics. -Repeat CBC tomorrow morning to monitor for leukocytosis. Abnormal EKG -Admission EKG showed possible junctional bradycardic rhythm -EKG repeated today revealed sinus bradycardia without acute ST segment elevation or depression. 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 -No other lesions noted in/around mouth -monitor, consider starting acyclovir if worsens. Type 2 diabetes -Continue metformin, carbohydrate controlled diet. -Recheck hemoglobin A1c. -Monitor blood sugars. 05/24/17 18:18 Remeron 15mg PO QHS 05/25/17 UTI- Continue on Augmentin for treatment of Escherichia coli urinary tract infection. Culture and sensitivity reviewed. HTN- noted. Blood pressure is slightly elevated today. We'll continue to monitor. Currently on Norvasc 5 milligrams daily. Could consider increasing to 10mg. Constipation-have asked nursing staff to increase their aggressiveness regarding bowel motivation. Started MiraLAX and milk of magnesia Diabetes-will continue to monitor blood sugars. Overall appear to be well controlled on metformin 500 twice a day. Continue to encourage purchase patient unit activities and provide a safe environment under the care of Dr. Cha 05/25/17 14:48 Continue current care 05/26/17 17:47 Depakote 250mg PO BID 05/27/17 11:53 Continue current care 05/28/17 11:09 Continue current care 05/28/17 12:14 - Mirakian. UTI, acute. * UTI - pansensitive. Augmentin initiated 05/24. Will discontinue Augmentin . Monitor closely for reoccurrence. Vascular dementia with behavioral disturbance. * Continue psychiatric care per team. PRN medications as indicated. Nursing reports overall patient is doing better and less intrusive with less anxiety. Continue to provide safe and supportive environment. Encourage participation in floor activities. Anticipate discharge in near future. Hyperosmotic hypernatremia, present on admission. * Labs from 05/24 showed sodium 146. Will recheck labs in AM to monitor blood counts, electrolytes and renal function. Encourage oral fluid intake. Type 2 diabetes mellitus. * Last hemoglobin A1c was 6.1% in April 2016 and improved to 5.3 on 05/23/17. Blood sugars well controlled. Continue to monitor closely. Continue home metformin. Hypertension, chronic. * Blood pressure remains slightly elevated with systolic averaging in the 140' s. Will increase Norvasc to 10mg daily and monitor closely for signs of hypotension. Hyperlipidemia, chronic. * Continue home simvastatin and follow as outpatient. Constipation. * Continue with bowel motivation in light of recent constipation. 05/29/17 17:56 Plan D/C tomorrow
--- NOTE | 2017-05-29 18:02 | Discharge Instructions ---
Discharge Plan - Med Rec/Dispo Additional Instructions: Discharge Diagnosis. Major neurocognitive Disorder with Behavioral Disturbance Prescriptions: New Divalproex [Depakote] 250 mg PO BID #60 tablet Mirtazapine [Remeron] 15 mg PO 2100 #30 tablet No Action Simvastatin [Simvastatin] 20 mg PO HS Amlodipine [Norvasc] 5 mg PO DAILY Vitamin D 1 tab PO DAILY [place]-3/Dha/Epa/Fish Oil [Fish Oil 1,000 mg Softgel] 1,000 mg PO DAILY Benazepril [Lotensin] 20 mg PO DAILY metformin 500 mg tablet 500 mg PO BID #180 tab Discharge Instructions/Outpatient Orders: Criteria for Antipsychotic Use Location: Determined By Patient Final Provider Discharge Instructions Location: Determined By Patient - Disposition 01 Discharged Home, Self-Care
[2017-05-29] MEDS: MIRTAZAPINE 15 MG TABLET PO SCH (19:43)
[2017-05-29] MEDS: SIMVASTATIN 20 MG TABLET PO SCH (19:44)
[2017-05-30] MEDS: DIVALPROEX 250 MG TABLET PO SCH ×2 (02:40→08:22)
[2017-05-30] MEDS: SIMVASTATIN 20 MG TABLET PO SCH (02:40)
[2017-05-30] MEDS: MIRTAZAPINE 15 MG TABLET PO SCH (02:40)
[2017-05-30] MEDS: OMEGA-3 ACID ESTERS 1 GM CAPSULE PO SCH (08:22)
[2017-05-30] MEDS: METFORMIN 500 MG TABLET PO SCH (08:22)
[2017-05-30] MEDS: BENAZEPRIL 20 MG TABLET PO SCH (08:22)
[2017-05-30] MEDS: LACTOBACILLUS (15B cfu) CAPSULE PO SCH (08:22)
[2017-05-30] MEDS: AMOX/CLAV 500 MG/125 MG TABLET PO SCH (08:22)
[2017-05-30] MEDS: AMLODIPINE 10 MG TABLET PO SCH (08:23)
[2017-05-30] MEDS: POLYETHYL GLYCOL 3350 17gm PACKET PO SCH (08:23)
--- NOTE | 2017-05-30 09:15 | Progress Note ---
Subjective: Nahomi is seen today in follow up for her recent UTI and dementia with behaviors. She is seen while sitting in the day room, watching TV. She denies any complaints including no chest pain, shortness of breath, abdominal pain, nausea, vomiting, diarrhea, dysuria, fevers or chills. Her appetite is good and bowels are moving. Nursing reports that her behaviors are improved and she is scheduled for discharge today. On exam, she is sitting in the recliner and in no apparent distress. She is alert and orientated with flat affect. Cardiac exam reveals regular rate and rhythm and lungs are clear to auscultation. Abdomen is soft, nontender with active bowel sounds. No edema noted to lower extremities. Recent labs on revealed improved hypernatremia and overall unremarkable. She remains on Augmentin until 05/31/17 for recent UTI. Blood pressure improved with increased dose of Norvasc. Objective Vital signs: Temperature 97.6 F 05/29/17 19:45 Pulse Rate 77 05/29/17 19:45 Respiratory Rate 16 05/29/17 19:45 Blood Pressure 133/72 05/29/17 19:45 Pulse Oximetry 97 05/29/17 19:45 Oxygen Delivery Method Room Air Height: 5 ft 1 in Weight: 118 lb 2.684 oz Body Mass Index: 22.3 - Constitutional Present: no acute distress, well nourished, well developed, cooperative - Routine HEENT Exam Head: Present: normocephalic, atraumatic Eye: Present: PERRL. Absent: conjunctival icterus ENT: Present: mucous membranes moist, dentition normal - Routine Respiratory Exam Present: CTA bilaterally. Absent: stridor, wheezes, crackles - Routine Cardiovascular Exam Present: RRR, S1, S2 - Routine Abdominal Exam Present: soft, normoactive bowel sounds, non distended, non tender - Routine Extremities Exam Present: no edema, non tender, pulses intact - Routine Back/Spine/Pelvis Exam Back/Spine: Present: full ROM - Routine Musculoskeletal Exam Musculoskeletal: Present: no clubbing or cyanosis, moving extremities well - Routine Skin Exam Present: intact, dry, warm - Routine Neurological Exam Present: alert, moving all extremities, normal speech. Absent: facial asymmetry - Routine Lymphatic Exam Lymphatic: Absent: lymphedema - Routine Psychiatric Exam Present: cooperative Comments: flat affect Results - Labs CBC & Chem 7: 05/29/17 04:35 05/29/17 04:35 Assessment and Plan (1) Hypernatremia Current visit: Yes Status: Resolved (2) Bacteria in urine Current visit: Yes Status: Acute Resuscitation Status: Full Code Assessment and Plan: 05/28/17-Brett. Vascular dementia with behavioral disturbance. * Continue psychiatric care per team. PRN medications as indicated. Nursing reports overall patient is doing better and less intrusive with less anxiety. Continue to provide safe and supportive environment. Encourage participation in floor activities. Anticipate discharge today. Patient to follow up as outpatient with PCP. Patient is medically stable and cleared for discharge. UTI, acute. * UTI - pansensitive. Augmentin initiated 05/24. Will discontinue Augmentin . Monitor closely for reoccurrence. Hyperosmotic hypernatremia, present on admission - resolved on 05/29/17. * Sodium normalized on 05/29/17 at 144. Continue to encourage oral fluid intake. Recommend follow up as outpatient. Type 2 diabetes mellitus. * Last hemoglobin A1c was 6.1% in April 2016 and improved to 5.3 on 05/23/17. Blood sugars well controlled. Continue to monitor closely. Continue home metformin. Hypertension, chronic. * Blood pressure improved with increased dose of Norvasc. Continue Norvasc 10mg daily and monitor closely for signs of hypotension. Recommend follow up with PCP as outpatient for close monitoring. Hyperlipidemia, chronic. * Continue home simvastatin and follow as outpatient. Constipation. * Continue with bowel motivation in light of recent constipation. - Time spent with patient 25 - 35 minutes Sepsis Assessment - Evaluation Sepsis screening result: No Definite Risk Hospital Course Summary Disclaimer: The visit summary below is not to be considered part of the above Progress Note. Hospital Course: 05/23/17 Assessment Vascular dementia with behavioral disturbance. Hyperosmotic hypernatremia, present on admission. Hypercalcemia, present on admission. Asymptomatic UTI. Type 2 diabetes mellitus. Last hemoglobin A1c was 6.1% in April 2016 Hypertension. Hyperlipidemia. Gilbert's disease. Allergic rhinitis. Plan Dementia with behavioral changes -Per attending -Agree with obtaining dementia workup -TSH normal. Vitamin B12, folate, RPR pending. -check LFTs Hypernatremia -Encourage oral intake -On repeat today, sodium returned to normal level at 144 -Reassess BMP tomorrow morning to follow-up on hypernatremia and hypercalcemia. Hypercalcemia [mild]. -Improved on repeat lab work, but remains elevated. -She is not on calcium supplementation but does take cholecalciferol. -Hold vitamin D and check phosphorus level since cholecalciferol promotes secretion of calcium from bone to blood and promotes renal tubule phosphate resorption -Per up-to-date, symptoms of vitamin D toxicity include nausea, vomiting, loss of appetite, constipation, dehydration, fatigue, irritability, confusion, weakness and/or weight loss -check PTH, albumin, and ionized Ca Asymptomatic UTI/bacteria in urine -Normal white count, afebrile, patient also denies any urinary symptoms (though suspect she is not the best historian) -She was given 1 dose of Keflex in the emergency department. -We'll await to see what culture grows out before resuming antibiotic therapy. -If she starts to develop urinary symptoms, may restart antibiotics. -Repeat CBC tomorrow morning to monitor for leukocytosis. Abnormal EKG -Admission EKG showed possible junctional bradycardic rhythm -EKG repeated today revealed sinus bradycardia without acute ST segment elevation or depression. 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 -No other lesions noted in/around mouth -monitor, consider starting acyclovir if worsens. Type 2 diabetes -Continue metformin, carbohydrate controlled diet. -Recheck hemoglobin A1c. -Monitor blood sugars. 05/24/17 18:18 Remeron 15mg PO QHS 05/25/17 UTI- Continue on Augmentin for treatment of Escherichia coli urinary tract infection. Culture and sensitivity reviewed. HTN- noted. Blood pressure is slightly elevated today. We'll continue to monitor. Currently on Norvasc 5 milligrams daily. Could consider increasing to 10mg. Constipation-have asked nursing staff to increase their aggressiveness regarding bowel motivation. Started MiraLAX and milk of magnesia Diabetes-will continue to monitor blood sugars. Overall appear to be well controlled on metformin 500 twice a day. Continue to encourage purchase patient unit activities and provide a safe environment under the care of Dr. Cha 05/25/17 14:48 Continue current care 05/26/17 17:47 Depakote 250mg PO BID 05/27/17 11:53 Continue current care 05/28/17 11:09 Continue current care 05/28/17 12:14 - Mirakian. UTI, acute. * UTI - pansensitive. Augmentin initiated 05/24. Will discontinue Augmentin . Monitor closely for reoccurrence. Vascular dementia with behavioral disturbance. * Continue psychiatric care per team. PRN medications as indicated. Nursing reports overall patient is doing better and less intrusive with less anxiety. Continue to provide safe and supportive environment. Encourage participation in floor activities. Anticipate discharge in near future. Hyperosmotic hypernatremia, present on admission. * Labs from 05/24 showed sodium 146. Will recheck labs in AM to monitor blood counts, electrolytes and renal function. Encourage oral fluid intake. Type 2 diabetes mellitus. * Last hemoglobin A1c was 6.1% in April 2016 and improved to 5.3 on 05/23/17. Blood sugars well controlled. Continue to monitor closely. Continue home metformin. Hypertension, chronic. * Blood pressure remains slightly elevated with systolic averaging in the 140' s. Will increase Norvasc to 10mg daily and monitor closely for signs of hypotension. Hyperlipidemia, chronic. * Continue home simvastatin and follow as outpatient. Constipation. * Continue with bowel motivation in light of recent constipation. 05/29/17 17:56 Plan D/C tomorrow
[2017-05-30 09:32] VITALS: BP 134/76; PULSE 71; RESP 21; TEMP 97.7; O2SAT 95
--- NOTE | 2017-06-04 13:43 | Neuropsychiatric Disch Summary ---
Discharge Information Date of admission: 05/22/17 23:29 Attending Physician: Chucho Cha MD Primary care physician: Paty Thakur MD Consults: 05/23/17 00:10 Case Management Consult [CONS] Routine Reason For Exam: medical management Physician Consult [CONS] Routine Consulting Provider: Aaron Ricci Reason For Exam: medical management Ordering Provider has Notified Video Editor: No 05/23/17 00:29 Dietary Consult [CONS] Routine Comment: pt had weight loss over last 6 months Reason For Exam: positive high risk screen - Discharge Diagnosis Discharge Diagnosis: Major neurocognitive Disorder with Behavioral Disturbance - Laboratory Labs: 05/29/17 04:35 05/29/17 04:35 Date of Admission: 05/22/17 23:29 History of Present Illness: HPI: 71 Y/O CF with a hx of dementia BB for increasing aggression and wandering behavior. Per pt has had increasing memory impairment and aggression with wandering behavior. reports pt has been irritable, throwing objects, and has had increased wandering behaviors. This has been going on for about 6 months but it has been worse over the last 2 weeks. On face to face the pt is pleasant. Nursing reports pt was irritable and anxious this morning but is doing well today. She is alert and oriented x 2. Not sure of the month. She states she is here due to a UTI. She voices no concerns at this time. STRESSORS: Denies any current stressors. PSYCH ROS: PT denies feeling depressed. reports pt has been more irritable and angry at times with a labile mood. She has had significant weight loss recently. She can be anxious at times. She denies adal or psychosis. PAST PSYCH: Denies Hospital Course This is a general summary of the patient's hospital course. For more details refer to the complete medical record. Hospital course: 05/23/17 Assessment Vascular dementia with behavioral disturbance. Hyperosmotic hypernatremia, present on admission. Hypercalcemia, present on admission. Asymptomatic UTI. Type 2 diabetes mellitus. Last hemoglobin A1c was 6.1% in April 2016 Hypertension. Hyperlipidemia. Gilbert's disease. Allergic rhinitis. Plan Dementia with behavioral changes -Per attending -Agree with obtaining dementia workup -TSH normal. Vitamin B12, folate, RPR pending. -check LFTs Hypernatremia -Encourage oral intake -On repeat today, sodium returned to normal level at 144 -Reassess BMP tomorrow morning to follow-up on hypernatremia and hypercalcemia. Hypercalcemia [mild]. -Improved on repeat lab work, but remains elevated. -She is not on calcium supplementation but does take cholecalciferol. -Hold vitamin D and check phosphorus level since cholecalciferol promotes secretion of calcium from bone to blood and promotes renal tubule phosphate resorption -Per up-to-date, symptoms of vitamin D toxicity include nausea, vomiting, loss of appetite, constipation, dehydration, fatigue, irritability, confusion, weakness and/or weight loss -check PTH, albumin, and ionized Ca Asymptomatic UTI/bacteria in urine -Normal white count, afebrile, patient also denies any urinary symptoms (though suspect she is not the best historian) -She was given 1 dose of Keflex in the emergency department. -We'll await to see what culture grows out before resuming antibiotic therapy. -If she starts to develop urinary symptoms, may restart antibiotics. -Repeat CBC tomorrow morning to monitor for leukocytosis. Abnormal EKG -Admission EKG showed possible junctional bradycardic rhythm -EKG repeated today revealed sinus bradycardia without acute ST segment elevation or depression. 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 -No other lesions noted in/around mouth -monitor, consider starting acyclovir if worsens. Type 2 diabetes -Continue metformin, carbohydrate controlled diet. -Recheck hemoglobin A1c. -Monitor blood sugars. 05/24/17 18:18 Remeron 15mg PO QHS 05/25/17 UTI- Continue on Augmentin for treatment of Escherichia coli urinary tract infection. Culture and sensitivity reviewed. HTN- noted. Blood pressure is slightly elevated today. We'll continue to monitor. Currently on Norvasc 5 milligrams daily. Could consider increasing to 10mg. Constipation-have asked nursing staff to increase their aggressiveness regarding bowel motivation. Started MiraLAX and milk of magnesia Diabetes-will continue to monitor blood sugars. Overall appear to be well controlled on metformin 500 twice a day. Continue to encourage purchase patient unit activities and provide a safe environment under the care of Dr. Cha 05/25/17 14:48 Continue current care 05/26/17 17:47 Depakote 250mg PO BID 05/27/17 11:53 Continue current care 05/28/17 11:09 Continue current care 05/28/17 12:14 - Mirakian. UTI, acute. * UTI - pansensitive. Augmentin initiated 05/24. Will discontinue Augmentin . Monitor closely for reoccurrence. Vascular dementia with behavioral disturbance. * Continue psychiatric care per team. PRN medications as indicated. Nursing reports overall patient is doing better and less intrusive with less anxiety. Continue to provide safe and supportive environment. Encourage participation in floor activities. Anticipate discharge in near future. Hyperosmotic hypernatremia, present on admission. * Labs from 05/24 showed sodium 146. Will recheck labs in AM to monitor blood counts, electrolytes and renal function. Encourage oral fluid intake. Type 2 diabetes mellitus. * Last hemoglobin A1c was 6.1% in April 2016 and improved to 5.3 on 05/23/17. Blood sugars well controlled. Continue to monitor closely. Continue home metformin. Hypertension, chronic. * Blood pressure remains slightly elevated with systolic averaging in the 140' s. Will increase Norvasc to 10mg daily and monitor closely for signs of hypotension. Hyperlipidemia, chronic. * Continue home simvastatin and follow as outpatient. Constipation. * Continue with bowel motivation in light of recent constipation. 05/29/17 17:56 Plan D/C tomorrow Time spent with patient: 25 - 35 minutes Discharge Plan - Med Rec/Dispo Referrals/Follow Up: Josué Thakur MD [Family Provider] - (Dr. Paty Thakur on 06/12/17 at 1:30pm for Hosp. follow-up. [facility] [address] [place] [address] No Mental Health follow-up scheduled, due to looking privately.) Additional Instructions: Discharge Diagnosis. Major neurocognitive Disorder with Behavioral Disturbance Reasons for Admission: Patient was physically aggressive with family, not medication compliant, and failing her ADL's. IN CASE OF PSYCHIATRIC EMERGENCY, CONTACT GENERATIONS STAFF AT [phone] ( available 24 hrs. daily). Prescriptions: New Divalproex [Depakote] 250 mg PO BID #60 tablet Mirtazapine [Remeron] 15 mg PO 2100 #30 tablet Amlodipine [Norvasc] 10 mg PO DAILY #30 tablet Amox/Clav [Augmentin] 500 mg PO TIDWM #5 tablet Metformin [Glucophage] 500 mg PO BIDWM tablet Acetaminophen [Tylenol] 325 - 650 mg PO Q5H PRN tablet PRN Reason: Discomfort Continue Simvastatin 20 mg PO HS Vitamin D 1 tab PO DAILY Lizella-3/Dha/Epa/Fish Oil [Fish Oil 1,000 mg Softgel] 1,000 mg PO DAILY Benazepril [Lotensin] 20 mg PO DAILY metformin 500 mg tablet 500 mg PO BID #180 tab Discontinued Amlodipine [Norvasc] 5 mg PO DAILY Discharge Instructions/Outpatient Orders: Criteria for Antipsychotic Use Location: Determined By Patient Final Provider Discharge Instructions Location: Determined By Patient - Disposition 01 Discharged Home, Self-Care
== END 2017-05-30 11:55 | disposition home or self-care (01) | DRG 884 ==
LOC: ED 20:18 → GEN 23:29
PROVIDERS: ADMIT Psychiatry & Neurology Psychiatry; ATTEND Psychiatry & Neurology Psychiatry